=== PATIENT | female | born 1960 | race Caucasian/White ===

== ENCOUNTER 2016-12-29 12:47 | Observation (INO) | payer BC ==
[2016-12-29] MEDS ORDERED: Lasix 40 MG/4 ML IV ONE (14:30)
[2016-12-29] MEDS ORDERED: Sodium Chloride 0.9% 10 ML FLUSH Syringe IV PRN (14:39)
[2016-12-29] MEDS ORDERED: Nitrostat 0.4 MG Tablet SL PRN (14:40)
[2016-12-29 15:12] LABS: Mean Cell Volume 94.2 fl (78-100); Mean Corpuscular Hemoglobin 31.5 pg (26-32); Mean Platelet Volume 9.5 fl (6-9.5); Platelet Count 261 K/mm3 (150-450); Red Blood Count 4.16 M/mm3 (4.1-5.4); Red Cell Distribution Width 13.3 % (11.5-14.0); White Blood Count 6.3 K/mm3 (4.0-10.5)
[2016-12-29 15:35] LABS: BLOOD UREA NITROGEN 15 mg/dL (9-20); CHLORIDE 105 mEq/L (98-107); Glucose 90 MG/DL (70-110); Potassium 3.7 mEq/L (3.5-5.1); SODIUM 142 mEq/L (136-145)
[2016-12-29 15:41] LABS: TROPONIN < 0.017 ng/ml (0.000-0.056)
[2016-12-29] MEDS ORDERED: TYLENOL 325 MG PO PRN (20:21)
[2016-12-29] MEDS: Lopressor 50 MG PO SCH (23:02)
[2016-12-29] MEDS: Zestril 20 MG PO SCH (23:02)
[2016-12-29] MEDS: Sodium Chloride 0.9% 10 ML FLUSH Syringe IV SCH (23:03)
[2016-12-30] MEDS: Lopressor 50 MG PO SCH (08:37)
[2016-12-30] MEDS: Zestril 20 MG PO SCH (08:37)
[2016-12-30] MEDS: Sodium Chloride 0.9% 10 ML FLUSH Syringe IV SCH (08:38)
[2016-12-30] MEDS ORDERED: PLAVIX 75 MG Tablet PO SCH (10:00)
[2016-12-30] MEDS ORDERED: FLUCELVAX QUAD 2017-2018 SYR IM ONE (10:00)
[2016-12-30 11:34] VITALS: BP 133/65; PULSE 56; O2SAT 96
--- NOTE | 2016-12-30 12:43 | PCM.DCORD ---
- Discharge Discharge Date: 12/30/16 Disposition: Home, Self-Care Condition: Stable Prescriptions: New Furosemide 20 mg [Lasix 20 mg] 20 mg PO BID #60 tablet Continue Lisinopril 20 mg [Zestril 20 MG] 20 mg PO BID Nitroglycerin 0.4 mg SL Q5MIN PRN MR X 3 PRN PRN Reason: Chest Pain Metoprolol Tartrate 50 mg PO BID Clopidogrel Bisulfate 75 mg [PLAVIX 75 MG Tablet] 75 mg PO DAILY Follow up with: MANE LIMON MD [Primary Care Provider] - 1 Week
== END 2016-12-30 14:40 | disposition home or self-care (01) ==
LOC: MED SURG 12:47
PROVIDERS: ADMIT General Practice; ATTEND General Practice
DX: I50.31 Acute diastolic (congestive) heart failure (principal); I25.810 Atherosclerosis of coronary artery bypass graft(s) without angina pectoris
CPT/HCPCS: 36415; 80048; 83880; 84484; 85027; 93005; 93268; 94762; G0008; G0378; J1940; A9270-GY

== ENCOUNTER 2017-06-24 09:52 | Observation (INO) | payer BC ==
[2017-06-24] MEDS ORDERED: TYLENOL 325 MG PO PRN (11:25)
[2017-06-24 11:37] LABS: Granulocyte Absolute (ANC) 4.15 (1.4-6.9); Hematocrit 37.5 % (35-47); Hemoglobin 12.5 gm/dl (12.0-16.0); Mean Corpuscular Hemoglobin 31.3 pg (26-32); Mean Corpuscular Hgb Concent. 33.3 g/dl (32-36); Mean Platelet Volume 8.9 fl (6-9.5); Platelet Count 300 K/mm3 (150-450); Red Blood Count 3.99 M/mm3 (4.1-5.4); Red Cell Distribution Width 13.8 % (11.5-14.0); White Blood Count 9.1 K/mm3 (4.0-10.5)
--- NOTE | 2017-06-24 11:39 | PCM.HP.ADD ---
Addendum to History & Physical - History & Physical Addendum Addendum to History & Physical: This certifies that the History & Physical in the electronic chart reflects the current health status of the patient. If there are changes in the H&P these changes/exceptions are listed as follows.
[2017-06-24 11:44] LABS: ALBUMIN 4.2 g/dL (3.5-5.0); ALKALINE PHOSPHATASE 80 U/L (38-126); BLOOD UREA NITROGEN 23 mg/dL (7-17); CHLORIDE 103 mmol/L (98-107); Calcium 9.3 mg/dL (8.4-10.2); Carbon Dioxide 24 mmol/L (22-30); Creatinine 1 0.75 mg/dL (0.52-1.04); Glucose 83 mg/dL (74-106); Potassium 4.2 mmol/L (3.5-5.1); SGOT/AST 22 U/L (14-36); SGPT/ALT 22 U/L (0-35); SODIUM 139 mmol/L (137-145); Total Protein 6.9 g/dL (6.3-8.2)
[2017-06-24 11:52] LABS: NT PRO BNP 120 pg/mL (0-900)
[2017-06-24] MEDS: Zithromax 500 MG/ 250 ML NaCl Premix 500 MG/250 ML IVPB IV SCH (12:04)
[2017-06-24] MEDS: Sodium Chloride 0.9% 1000 ML 1,000 ML IV SCH ×2 (12:04→23:18)
--- NOTE | 2017-06-24 12:11 | XRAY ---
Indication: Short of breath. Comparison: None PA/lateral chest clear. Heart is not enlarged and demonstrates previous CABG surgery. Vascularity normal. Bony thorax intact with sternotomy wires. Impression: Nonacute chest with previous CABG surgery.
[2017-06-24] MEDS: Imdur 30 MG PO SCH (13:22)
[2017-06-24 13:28] LABS: Lymphocytes 36 % (24-44); Monocyte 7 % (0.0-12.0); Neutrophils 57 % (36.0-66.0); Platelet Estimate NORMAL (NORMAL); Total Cells Counted 100
[2017-06-24] MEDS: NORVASC 5 MG PO SCH (13:31)
[2017-06-24] MEDS: Zestril 20 MG PO SCH ×2 (13:32→21:13)
[2017-06-24] MEDS: Lopressor 50 MG PO SCH ×2 (13:33→21:13)
[2017-06-24] MEDS: PLAVIX 75 MG Tablet PO SCH (13:33)
[2017-06-24] MEDS: LASIX 20 MG PO SCH (16:35)
[2017-06-24] MEDS ORDERED: NON-FORMULARY ITEM (Atorvastatin Calcium [Atorvastatin Calcium] 20 MG) PO SCH (22:00)
[2017-06-24] MEDS ORDERED: ZOCOR 20MG PO SCH (22:00)
[2017-06-25 07:00] VITALS: BP 109/57
[2017-06-25] MEDS: Sodium Chloride 0.9% 1000 ML 1,000 ML IV SCH (09:23)
[2017-06-25] MEDS: Zithromax 500 MG/ 250 ML NaCl Premix 500 MG/250 ML IVPB IV SCH (09:29)
[2017-06-25] MEDS: PLAVIX 75 MG Tablet PO SCH (09:32)
[2017-06-25] MEDS: Zestril 20 MG PO SCH (09:32)
[2017-06-25] MEDS: LASIX 20 MG PO SCH (09:32)
[2017-06-25] MEDS: NORVASC 5 MG PO SCH (09:32)
[2017-06-25] MEDS: Lopressor 50 MG PO SCH (09:32)
[2017-06-25] MEDS: Imdur 30 MG PO SCH (09:33)
[2017-06-25] MEDS ORDERED: ROCEPHIN 1 Gm-D5w 50 ml Bag** 1 G/50 ML IVPB IV SCH (10:00)
--- NOTE | 2017-06-25 11:36 | PCM.SSS ---
History of Present Illness - Chief Complaint Chief Complaint: dehydration for 2 days History of Present Illness: is a 56 year old female admitted with weakness, nausea and vomiting - Review of Systems Constitutional: No Fever, No Chills Eyes: No Symptoms Ears, Nose, & Throat: No Symptoms Respiratory: No Cough, No Short Of Breath Cardiac: No Chest Pain, No Edema, No Syncope Abdominal/Gastrointestinal: No Abdominal Pain, No Nausea, No Vomiting, No Diarrhea Genitourinary Symptoms: No Dysuria Musculoskeletal: No Back Pain, No Neck Pain Skin: No Rash Neurological: No Dizziness, No Focal Weakness, No Sensory Changes Psychological: No Symptoms Endocrine: No Symptoms Hematologic/Lymphatic: No Symptoms Immunological/Allergic: No Symptoms Medications & Allergies Home Medications: Home Medication List Clopidogrel Bisulfate 75 mg [PLAVIX 75 MG Tablet] 75 mg PO DAILY 12/29/16 [History Confirmed 06/24/17] Lisinopril 20 mg [Zestril 20 MG] 20 mg PO BID 12/29/16 [History Confirmed 06/24/17] Metoprolol Tartrate 50 mg PO BID 12/29/16 [History Confirmed 06/24/17] Furosemide 20 mg [Lasix 20 mg] 20 mg PO BID #60 tablet 12/30/16 [Rx Confirmed 06/24/17] Amlodipine Besylate 2.5 mg PO DAILY 06/24/17 [History Confirmed 06/24/17] Atorvastatin Calcium 20 mg PO HS 06/24/17 [History Confirmed 06/24/17] Isosorbide Mononitrate 30 mg [Imdur 30 MG] 30 mg PO DAILY 06/24/17 [ History Confirmed 06/24/17] Allergies/Adverse Reactions: Allergies Allergy/AdvReac Type Severity Reaction Status Date / Time Penicillins Allergy Verified 12/29/16 13:21 - Past Medical History Past Medical History: Yes Neurological History: No Pertinent History ENT History: No Pertinent History Cardiac History: No Pertinent History, Hypertension Respiratory History: Asthma, CHF, COPD Endocrine Medical History: No Pertinent History Musculoskelatal History: Osteoporosis GI Medical History: No Pertinent History History: No Pertinent History Pyscho-Social History: No Pertinent History Reproductive Disorders: Uterine Cancer Comment: calcium pills - Female History Are you now?: No - Past Surgical History Past Surgical History: Yes Neuro Surgical History: No Pertinent History Cardiac History: CABG Respiratory Surgery: No Pertinent History GI Surgical History: Appendectomy Genitourinary Surgical Hx: No Pertinent History Musculskeletal Surgical Hx: No Pertinent History Female Surgical History: Hysterectomy Other Surgical History: 02/15/17 stent placement x 3 - Social History Smoking Status: Former smoker Exposure to second hand smoke: No Alcohol: None Drug Use: none - Physical Exam Vital Signs: Vital Signs - 24 hr Temp Pulse Resp BP Pulse Ox 06/25/17 06:59 97.7 F 58 L 20 109/57 95 06/25/17 04:00 98.2 F 60 18 103/54 95 06/25/17 00:00 18 06/24/17 23:51 97.8 F 66 18 101/57 97 06/24/17 20:00 18 06/24/17 19:48 97.7 F 77 18 99/55 95 06/24/17 16:00 97.5 F 68 18 93/53 95 06/24/17 11:46 84 20 93 L General Appearance: no apparent distress, alert Neurologic Exam: alert, oriented x 3, cooperative, normal mood/affect, nml cerebellar function, nml station & gait, sensation nml, No motor deficits Eye Exam: PERRL/EOMI, eyes nml inspection Ears, Nose, Throat Exam: normal ENT inspection, TMs normal, pharynx normal, moist mucous membranes Neck Exam: normal inspection, non-tender, supple, full range of motion Respiratory Exam: normal breath sounds, lungs clear, No respiratory distress Cardiovascular Exam: regular rate/rhythm, normal heart sounds, normal peripheral pulses Gastrointestinal/Abdomen Exam: soft, normal bowel sounds, No tenderness, No mass Back Exam: normal inspection, normal range of motion, No CVA tenderness, No vertebral tenderness Extremity Exam: normal inspection, normal range of motion, pelvis stable Skin Exam: normal color, warm, dry, No rash Lymphatic Exam: No adenopathy Results - Labs Lab/Micro Results: Lab Results-Last 24 Hours 06/24/17 06/24/17 Range/Units 11:25 11:25 WBC 9.1 (4.0-10.5) K/mm3 RBC 3.99 L (4.1-5.4) M/mm3 Hgb 12.5 (12.0-16.0) gm/dl Hct 37.5 (35-47) % MCV 94.0 (78-100) fl MCH 31.3 (26-32) pg MCHC 33.3 (32-36) g/dl RDW 13.8 (11.5-14.0) % Plt Count 300 (150-450) K/mm3 MPV 8.9 (6-9.5) fl Absolute Granulocytes 4.15 (1.4-6.9) Segmented Neutrophils 57 (36.0-66.0) % Lymphocytes (Manual) 36 (24-44) % Monocytes (Manual) 7 (0.0-12.0) % Platelet Estimate NORMAL (NORMAL) RBC Morphology NORMAL Sodium 139 (137-145) mmol/L Potassium 4.2 (3.5-5.1) mmol/L Chloride 103 (98-107) mmol/L Carbon Dioxide 24 (22-30) mmol/L Anion Gap 15.0 (5-15) MEQ/L BUN 23 H (7-17) mg/dL Creatinine 0.75 (0.52-1.04) mg/dL Estimated GFR > 60.0 ML/MIN Glucose 83 (74-106) mg/dL Calcium 9.3 (8.4-10.2) mg/dL Total Bilirubin 0.80 (0.2-1.3) mg/dL AST 22 (14-36) U/L ALT 22 (0-35) U/L Alkaline Phosphatase 80 (38-126) U/L NT-Pro-B Natriuret Pep 120 (0-900) pg/mL Serum Total Protein 6.9 (6.3-8.2) g/dL Albumin 4.2 (3.5-5.0) g/dL - Radiology Impressions Radiology Exams & Impressions: Radiology Procedures Category Date Time Status CHEST 2 VIEWS (PA AND LAT) Stat Exams 06/24/17 12:02 Completed - Other Procedures and Tests Respiratory Therapy 06/24/17 11:25 Respiratory Therapy Consult ROUTINE Assessment/Plan (1) Dehydration Current Visit: Yes Status: Acute Code(s): E86.0 - DEHYDRATION (2) CAD (coronary artery disease) Current Visit: Yes Status: Acute Qualifiers: Coronary Disease-Associated Artery/Lesion type: [place] artery [place] vs. transplanted heart: [place] heart Associated angina: without angina Qualified Code(s): I25.10 - Atherosclerotic heart disease of [place] coronary artery without angina pectoris Code(s): I25.10 - ATHSCL HEART DISEASE OF [place] CORONARY ARTERY W/O ANG PCTRS (3) COPD (chronic obstructive pulmonary disease) Current Visit: Yes Status: Chronic Qualifiers: COPD type: chronic bronchitis (4) CHF (congestive heart failure) Current Visit: Yes Status: Chronic Code(s): I50.9 - HEART FAILURE, UNSPECIFIED Hospital Summary - Hospital Course Hospital Course: Chief Complaint Diagnosis dehydration Allergies Allergy/AdvReac Type Severity Reaction Status Date / Time Penicillins Allergy Verified 12/29/16 13:21 Vital Signs (Last 24 hours) Temp Pulse Resp BP Pulse Ox 06/25/17 06:59 97.7 F 58 L 20 109/57 95 06/25/17 04:00 98.2 F 60 18 103/54 95 06/25/17 00:00 18 06/24/17 23:51 97.8 F 66 18 101/57 97 06/24/17 20:00 18 06/24/17 19:48 97.7 F 77 18 99/55 95 06/24/17 16:00 97.5 F 68 18 93/53 95 06/24/17 11:46 84 20 93 L Home Medications Medication Instructions Recorded Confirmed Last Taken Type Amlodipine Besylate [Amlodipine 2.5 mg PO DAILY 06/24/17 06/24/17 1 Day Ago History Besylate] ~06/23/17 2.5 mg Atorvastatin Calcium 20 mg PO HS 06/24/17 06/24/17 1 Day Ago History ~06/23/17 20 mg Isosorbide Mononitrate 30 mg 30 mg PO DAILY 06/24/17 06/24/17 1 Day Ago History [Imdur 30 MG] ~06/23/17 30mg Current Medications Generic Name Dose Route Start Last Admin Trade Name Freq PRN Reason Stop Dose Admin Acetaminophen 325 mg 06/24/17 11:25 Tylenol 325 Mg PO 07/24/17 11:24 Q4H PRN PRN PAIN, FEVER, HEADACHE Amlodipine Besylate 2.5 mg 06/24/17 14:00 06/25/17 09:32 Norvasc 5 Mg PO 07/24/17 13:59 2.5 mg DAILY VICTOR M Administration Clopidogrel Bisulfate 75 mg 06/24/17 14:00 04/13/18 09:32 Plavix 75 Mg Tablet PO 07/24/17 13:59 75 mg DAILY VICTOR M Administration Furosemide 20 mg 06/24/17 17:00 06/25/17 09:32 Lasix 20 Mg PO 07/24/17 16:59 20 mg BID DIURETIC VICTOR M Administration Azithromycin 500 mg in 250 mls @ 167 mls/hr 06/24/17 12:00 06/25/17 09:29 Zithromax 500 Mg/ 250 Ml Nacl Premix IV 07/24/17 11:59 167 mls/hr Q24H10 VICTOR M Administration Sodium Chloride 1,000 mls @ 100 mls/hr 06/24/17 11:30 06/25/17 09:23 Sodium Chloride 0.9% 1000 Ml IV 07/24/17 11:29 100 mls/hr .Q10H VICTOR M Administration Isosorbide Mononitrate 30 mg 06/24/17 14:00 06/25/17 09:33 Imdur 30 Mg PO 07/24/17 13:59 30 mg DAILY VICTOR M Administration Lisinopril 20 mg 06/24/17 14:00 06/25/17 09:32 Zestril 20 Mg PO 07/24/17 13:59 20 mg BID VICTOR M Administration Metoprolol Tartrate 50 mg 06/24/17 14:00 06/25/17 09:32 Lopressor 50 Mg PO 07/24/17 13:59 50 mg BID VICOTR M Administration Simvastatin 20 mg 06/24/17 22:00 06/24/17 21:14 Zocor 20mg PO 07/24/17 21:59 20 mg HS VICTOR M Administration Discontinued Medications Generic Name Dose Route Start Last Admin Trade Name Freq PRN Reason Stop Dose Admin Ceftriaxone Sodium/Dextrose 1 g in 50 mls @ 100 mls/hr 06/25/17 10:00 Rocephin 1 Gm-D5w 50 Ml Bag IV 07/25/17 09:59 Q24H10 VICTOR M Intake & Output (Last 24 hours) 06/22/17 06/23/17 06/24/17 06/25/17 11:59 11:59 11:59 11:59 Intake Total 3625 Output Total 1850 Balance 1775 Weight 77 kg Laboratory Results (Last 24 hours) 06/24/17 06/24/17 11:25 11:25 WBC 9.1 RBC 3.99 L Hgb 12.5 Hct 37.5 MCV 94.0 MCH 31.3 MCHC 33.3 RDW 13.8 Plt Count 300 MPV 8.9 Absolute Granulocytes 4.15 Segmented Neutrophils 57 Lymphocytes (Manual) 36 Monocytes (Manual) 7 Platelet Estimate NORMAL RBC Morphology NORMAL Sodium 139 Potassium 4.2 Chloride 103 Carbon Dioxide 24 Anion Gap 15.0 BUN 23 H Creatinine 0.75 Estimated GFR > 60.0 Glucose 83 Calcium 9.3 Total Bilirubin 0.80 AST 22 ALT 22 Alkaline Phosphatase 80 NT-Pro-B Natriuret Pep 120 Serum Total Protein 6.9 Albumin 4.2 Orders (Last 24 hours) Category Date Time Status Place in Observation ROUTINE Care 06/24/17 11:25 Active Nutritional Admission Screen once Diet 06/24/17 11:00 Active CHEST 2 VIEWS (PA AND LAT) Stat Exams 06/24/17 12:02 Completed CBC W DIFF Stat Lab 06/24/17 11:25 Completed CMP Stat Lab 06/24/17 11:25 Completed Manual Differential NC Stat Lab 06/24/17 11:25 Completed NT PRO BNP Stat Lab 06/24/17 11:25 Completed Acetaminophen 325 mg [Tylenol 325 mg] Med 06/24/17 11:25 Active 325 mg PO Q4H PRN PRN Amlodipine Besylate 5 mg [Norvasc 5 mg] Med 06/24/17 14:00 Active 2.5 mg PO DAILY Azithromycin 500 mg/250 ml [Zithromax 500 MG/ 250 ML Med 06/24/17 12:00 Active NaCl Premix] 500 mg in 250 ml IV Q24H10 Ceftriaxone 1 GM/50 ML PREMIX* [ROCEPHIN 1 Gm-D5w 50 ml Med 06/25/17 10:00 Discontinued Bag] 1 g in 50 ml IV Q24H10 Clopidogrel Bisulfate 75 mg [PLAVIX 75 MG Tablet] Med 06/24/17 14:00 Active 75 mg PO DAILY Furosemide 20 mg [Lasix 20 mg] Med 06/24/17 17:00 Active 20 mg PO BID DIURETIC Isosorbide Mononitrate 30 mg [Imdur 30 MG] Med 06/24/17 14:00 Active 30 mg PO DAILY Lisinopril 20 mg [Zestril 20 MG] Med 06/24/17 14:00 Active 20 mg PO BID Metoprolol Tartrate 50 mg [Lopressor 50 MG] Med 06/24/17 14:00 Active 50 mg PO BID NaCl 0.9% 1000 ml [Sodium Chloride 0.9% 1000 ML] 1,000 Med 06/24/17 11:30 Active ml IV 100 mls/hr Simvastatin 20Mg [Zocor 20Mg] Med 06/24/17 22:00 Active 20 mg PO HS EKG STAT RT 06/24/17 11:25 Completed Respiratory Therapy Consult ROUTINE RT 06/24/17 11:25 Active - Vitals & Intake/Output Vital Signs: Vital Signs Temperature 97.7 F 06/25/17 06:59 Pulse Rate 58 L 06/25/17 06:59 Respiratory Rate 20 06/25/17 06:59 Blood Pressure 109/57 06/25/17 06:59 O2 Sat by Pulse Oximetry 95 06/25/17 06:59 Intake & Output: Intake & Output 06/22/17 06/23/17 06/24/17 06/25/17 11:59 11:59 11:59 11:59 Intake Total 3625 Output Total 1850 Balance 1775 Weight 77 kg - Lab Result Diagrams: 06/24/17 11:25 06/24/17 11:25 Lab Results-Last 24 Hrs: Lab Results-Last 24 Hours 06/24/17 06/24/17 Range/Units 11:25 11:25 WBC 9.1 (4.0-10.5) K/mm3 RBC 3.99 L (4.1-5.4) M/mm3 Hgb 12.5 (12.0-16.0) gm/dl Hct 37.5 (35-47) % MCV 94.0 (78-100) fl MCH 31.3 (26-32) pg MCHC 33.3 (32-36) g/dl RDW 13.8 (11.5-14.0) % Plt Count 300 (150-450) K/mm3 MPV 8.9 (6-9.5) fl Absolute Granulocytes 4.15 (1.4-6.9) Segmented Neutrophils 57 (36.0-66.0) % Lymphocytes (Manual) 36 (24-44) % Monocytes (Manual) 7 (0.0-12.0) % Platelet Estimate NORMAL (NORMAL) RBC Morphology NORMAL Sodium 139 (137-145) mmol/L Potassium 4.2 (3.5-5.1) mmol/L Chloride 103 (98-107) mmol/L Carbon Dioxide 24 (22-30) mmol/L Anion Gap 15.0 (5-15) MEQ/L BUN 23 H (7-17) mg/dL Creatinine 0.75 (0.52-1.04) mg/dL Estimated GFR > 60.0 ML/MIN Glucose 83 (74-106) mg/dL Calcium 9.3 (8.4-10.2) mg/dL Total Bilirubin 0.80 (0.2-1.3) mg/dL AST 22 (14-36) U/L ALT 22 (0-35) U/L Alkaline Phosphatase 80 (38-126) U/L NT-Pro-B Natriuret Pep 120 (0-900) pg/mL Serum Total Protein 6.9 (6.3-8.2) g/dL Albumin 4.2 (3.5-5.0) g/dL - Radiology Exams Ordered Rad Exams-Entire Visit: Radiology Procedures Category Date Time Status CHEST 2 VIEWS (PA AND LAT) Stat Exams 06/24/17 12:02 Completed - Procedures and Test Procedures and Tests throughout Hospitalization: Therapy Orders & Screens 06/24/17 11:25 EKG STAT Comment: Diagnosis: dehydration Respiratory Therapy Consult ROUTINE Comment: Reason For Exam: Diagnosis: dehydration - Discharge Discharge Date: 06/25/17 Disposition: Home, Self-Care Condition: Stable Prescriptions: Continue Lisinopril 20 mg [Zestril 20 MG] 20 mg PO BID Metoprolol Tartrate 50 mg PO BID Clopidogrel Bisulfate 75 mg [PLAVIX 75 MG Tablet] 75 mg PO DAILY Furosemide 20 mg [Lasix 20 mg] 20 mg PO BID #60 tablet Amlodipine Besylate 2.5 mg PO DAILY Isosorbide Mononitrate 30 mg [Imdur 30 MG] 30 mg PO DAILY Atorvastatin Calcium 20 mg PO HS Follow up with: MANE LIMON MD [Primary Care Provider] - 1 Week
[2017-06-25 12:16] VITALS: PULSE 80; O2SAT 97
== END 2017-06-25 13:55 | disposition home or self-care (01) ==
LOC: MED SURG 10:09
PROVIDERS: ADMIT General Practice; ATTEND General Practice
DX: E86.0 Dehydration (principal); I25.10 Atherosclerotic heart disease of native coronary artery without angina pectoris; I10 Essential (primary) hypertension; J45.909 Unspecified asthma, uncomplicated; I50.9 Heart failure, unspecified; J44.9 Chronic obstructive pulmonary disease, unspecified; M81.0 Age-related osteoporosis without current pathological fracture; Z85.42 Personal history of malignant neoplasm of other parts of uterus; Z79.899 Other long term (current) drug therapy
CPT/HCPCS: 36415; 71046; 80053; 83880; 85025; 93005; 93268; 94760; J0456; A9270-GY; G0378

== ENCOUNTER 2018-08-07 09:36 | Emergency (ER) | payer BC ==
[2018-08-07 10:02] LABS: BASOPHIL % 0.6 % (0.0-0.4); Basophil (Absolute #) 0.04 (0-0.4); Eosinophil % 1.5 % (0.00-5.0); Granulocyte Absolute (ANC) 3.67 (1.4-6.9); Granulocytes % 53.9 % (36.0-66.0); Hematocrit 41.5 % (35-47); Lymphocytes % 35.3 % (24.0-44.0); Mean Cell Volume 94.7 fl (78-100); Mean Corpuscular Hgb Concent. 33.7 g/dl (32-36); Mean Platelet Volume 9.2 fl (6-9.5); Monocyte (Absolute #) 0.59 (0.0-1.3); Monocytes % 8.7 % (0.0-12.0); Platelet Count 274 K/mm3 (150-450); Red Blood Count 4.38 M/mm3 (4.1-5.4); Red Cell Distribution Width 13.5 % (11.5-14.0); White Blood Count 6.8 K/mm3 (4.0-10.5)
[2018-08-07 10:11] LABS: ALBUMIN 4.5 g/dL (3.5-5.0); Total Protein 7.6 g/dL (6.3-8.2)
[2018-08-07] MEDS ORDERED: Sodium Chloride 0.9% 1000 ML 1,000 ML ONE (10:12)
[2018-08-07] MEDS ORDERED: MORPHINE SULFATE 2 MG INJ ONE (10:12)
[2018-08-07 10:16] LABS: Creatinine 1 0.72 mg/dL (0.52-1.04)
--- NOTE | 2018-08-07 10:18 | ERPHSYRPT ---
- History of Present Illness Time Seen by Provider: 08/07/18 10:16 Historian: patient Exam Limitations: no limitations Patient Subjective Stated Complaint: left chest pain that radiates to the neck, back, and down left arm, [facility] Triage Nursing Assessment: Pt walked into the ER with a stable gait, holding chest, left arm numb, S1-S2 heard, pulses normal, vitals normal, took one Nitro before arriving at the ER with no relief, skin normal and dry, rates pain 5/10 Physician History: left chest pain that radiates to the neck, back, and down left arm, released from [facility] yesterday for chest pain. c/o pain and numbness in left upper extrimity. Timing/Duration: today Activities at Onset: none Quality: aching Location: shoulder Chest Pain Radiation: arm Severity of Pain-Max: mild Severity of Pain-Current: mild Modifying Factors: Improves With: nothing Associated Symptoms: denies symptoms Aspirin Treatment Today: no aspirin today Allergies/Adverse Reactions: Penicillins Allergy (Verified 12/29/16 13:21) Home Medications: Clopidogrel Bisulfate 75 mg [PLAVIX 75 MG Tablet] 75 mg PO DAILY 12/29/16 [History] Lisinopril 20 mg [Zestril 20 MG] 20 mg PO BID 12/29/16 [History] Metoprolol Tartrate 50 mg PO BID 12/29/16 [History] Amlodipine Besylate 2.5 mg PO DAILY 06/24/17 [History] Atorvastatin Calcium 20 mg PO HS 06/24/17 [History] Isosorbide Mononitrate 30 mg [Imdur 30 MG] 30 mg PO DAILY 06/24/17 [History ] Aspirin EC 81 mg [Ecotrin 81 mg] 81 mg PO DAILY 08/07/18 [History] Furosemide 20 mg [Lasix 20 mg] 40 mg PO DAILY 08/07/18 [History] Nitroglycerin 0.4 mg (Ed) [Nitrostat 0.4 MG (ED)] 0.4 mg SL UD 08/07/18 [ History] - Review of Systems Constitutional: No Fever, No Chills Eyes: No Symptoms Ears, Nose, & Throat: No Symptoms Respiratory: No Cough, No Dyspnea Cardiac: Chest Pain, No Edema, No Syncope Abdominal/Gastrointestinal: No Abdominal Pain, No Nausea, No Vomiting, No Diarrhea Genitourinary Symptoms: No Dysuria Musculoskeletal: No Back Pain, No Neck Pain Skin: No Rash Neurological: No Dizziness, No Focal Weakness, No Sensory Changes Psychological: No Symptoms Endocrine: No Symptoms All Other Systems: Reviewed and Negative - Past Medical History Pertinent Past Medical History: Yes Neurological History: No Pertinent History ENT History: No Pertinent History Cardiac History: No Pertinent History, Hypertension Respiratory History: Asthma, CHF, COPD Endocrine Medical History: No Pertinent History Musculoskeletal History: Osteoporosis GI Medical History: No Pertinent History History: No Pertinent History Psycho-Social History: No Pertinent History Female Reproductive Disorders: Uterine Cancer Other Medical History: calcium pills - Past Surgical History Past Surgical History: Yes Neuro Surgical History: No Pertinent History Cardiac: CABG Respiratory: No Pertinent History Gastrointestinal: Appendectomy Genitourinary: No Pertinent History Musculoskeletal: No Pertinent History Female Surgical History: Hysterectomy Other Surgical History: 02/15/17 stent placement x 3 - Social History Smoking Status: Former smoker Exposure to second hand smoke: No Drug Use: none Patient Lives Alone: Yes - Female History Hx Now: No - Nursing Vital Signs Nursing Vital Signs: Initial Vital Signs Pulse Rate 73 08/07/18 09:38 Pain Scale Pain Intensity 5 - Physical Exam General Appearance: no apparent distress, alert Eye Exam: PERRL/EOMI, eyes nml inspection Ears, Nose, Throat Exam: normal ENT inspection, moist mucous membranes Neck Exam: normal inspection, non-tender, supple, full range of motion Respiratory Exam: normal breath sounds, lungs clear, No respiratory distress Cardiovascular Exam: regular rate/rhythm, normal heart sounds Gastrointestinal/Abdomen Exam: soft, No tenderness, No mass Back Exam: normal inspection, No CVA tenderness, No vertebral tenderness Extremity Exam: normal inspection, normal range of motion Neurologic Exam: alert, oriented x 3, cooperative, normal mood/affect, sensation nml, No motor deficits Skin Exam: normal color, warm, dry SpO2: 99 - Course Nursing assessment & vital signs reviewed: Yes - CT Exams Chest CT Interpretation: Tele-radiologist Report (no PE, cholecystitis) Ordered Tests: Active Orders 24 hr Category Date Time Status Pyrometer Mechanic STAT Care 08/07/18 09:43 Active EKG-ER Only STAT Care 08/07/18 09:42 Active Oxygen-ED Only Nasal Cannula 2 lpm Care 08/07/18 09:42 Active CHEST W/WO CONTRAST [CT] Stat Exams 08/07/18 10:34 Taken CBC W DIFF Stat Lab 08/07/18 09:42 Completed CK-Creatinine Phosphokinase Stat Lab 08/07/18 09:42 Completed CMP Stat Lab 08/07/18 09:42 Completed D-DIMER QUANTITATION Stat Lab 08/07/18 09:42 Completed NT PRO BNP Stat Lab 08/07/18 09:42 Completed TROPONIN Stat Lab 08/07/18 09:42 Completed Medication Summary Generic Name Dose Route Start Last Admin Trade Name Freq PRN Reason Stop Dose Admin Sodium Chloride 1,000 mls @ 50 mls/hr 08/07/18 09:45 08/07/18 10:19 Sodium Chloride 0.9% 1000 Ml IV 09/06/18 09:44 50 mls/hr .Q20H VICTOR M Administration Discontinued Medications Generic Name Dose Route Start Last Admin Trade Name Freq PRN Reason Stop Dose Admin Morphine Sulfate 2 mg 08/07/18 09:42 08/07/18 10:19 Morphine Sulfate 2 Mg Inj IV 08/07/18 09:43 2 mg STAT ONE Administration Morphine Sulfate Confirm 08/07/18 10:12 Morphine Sulfate 2 Mg Inj Administered 08/07/18 10:13 Dose 2 mg .ROUTE .STK-MED ONE Lab/Rad Data: Laboratory Result Diagrams 08/07/18 09:42 08/07/18 09:42 Laboratory Results 08/07/18 08/07/18 08/07/18 Range/Units 09:42 09:42 09:42 WBC 6.8 (4.0-10.5) K/mm3 RBC 4.38 (4.1-5.4) M/mm3 Hgb 14.0 (12.0-16.0) gm/dl Hct 41.5 (35-47) % MCV 94.7 (78-100) fl MCH 32.0 (26-32) pg MCHC 33.7 (32-36) g/dl RDW 13.5 (11.5-14.0) % Plt Count 274 (150-450) K/mm3 MPV 9.2 (6-9.5) fl Gran % 53.9 (36.0-66.0) % Eos # (Auto) 0.10 (0-0.5) Absolute Lymphs (auto) 2.40 (1.0-4.6) Absolute Monos (auto) 0.59 (0.0-1.3) Lymphocytes % 35.3 (24.0-44.0) % Monocytes % 8.7 (0.0-12.0) % Eosinophils % 1.5 (0.00-5.0) % Basophils % 0.6 (0.0-0.4) % Absolute Granulocytes 3.67 (1.4-6.9) Basophils # 0.04 (0-0.4) D-Dimer 844 H* (215-500) ng/mL Sodium 142 (137-145) mmol/L Potassium 4.1 (3.5-5.1) mmol/L Chloride 107 (98-107) mmol/L Carbon Dioxide 24 (22-30) mmol/L Anion Gap 15.5 H (5-15) MEQ/L BUN 20 H (7-17) mg/dL Creatinine 0.72 (0.52-1.04) mg/dL Estimated GFR > 60.0 ML/MIN Glucose 105 (74-106) mg/dL Calcium 9.6 (8.4-10.2) mg/dL Total Bilirubin 1.30 (0.2-1.3) mg/dL AST 28 (14-36) U/L ALT 28 (0-35) U/L Alkaline Phosphatase 79 (38-126) U/L Creatine Kinase 141 H (30-135) U/L Troponin I < 0.012 (0.000-0.034) ng/mL NT-Pro-B Natriuret Pep 73.5 (0-900) pg/mL Serum Total Protein 7.6 (6.3-8.2) g/dL Albumin 4.5 (3.5-5.0) g/dL - Progress Progress: improved Air Movement: good Blood Culture(s) Obtained: No Antibiotics given: No Counseled pt/family regarding: lab results, diagnosis, need for follow-up, rad results - Departure Departure Disposition: Home Clinical Impression: Chest pain in adult, Choledocholithiasis Condition: Stable Critical Care Time: Yes Critical Care Time(excluding separately billable procedures): 30-74 minutes Referrals: MANE LIMON MD [Primary Care Provider] - Instructions: Atypical Chest Pain, Gallstones Additional Instructions: Discharge/Care Plan KAM KUO was seen on 08/07/18 in the Emergency Room. The patient was counseled regarding Diagnosis,Lab results, Imaging studies, need for follow up and when to return to the Emergency Room. Prescriptions given: Discharge Note I have spoken with the patient and/or caregivers. I have explained the patient' s condition, diagnosis and treatment plan based on the information available to me at this time. I have answered the patient's and/or caregiver's questions and addressed any concerns. The patient and/or caregivers have as good understanding of the patient's diagnosis, condition and treatment plan as can be expected at this point. The vital signs have been stable. The patient's condition is stable and appropriate for discharge from the emergency department. The patient will pursue further outpatient evaluation with the primary care physician or other designated or consulting physician as outlined in the discharge instructions. The patient and/or caregivers are agreeable to this plan of care and follow-up instructions have been explained in detail. The patient and/or caregivers have received these instruction. The patient/and or caregivers are aware that any significant change in condition or worsening of symptoms should prompt an immediate return to this or the closest emergency department or call 911. Prescriptions: Gabapentin 400 mg [Neurontin 400 MG] 0 mg PO QHS #30 capsule
[2018-08-07] MEDS: MORPHINE SULFATE 2 MG INJ IV ONE (10:19)
[2018-08-07] MEDS: Sodium Chloride 0.9% 1000 ML 1,000 ML IV SCH (10:19)
[2018-08-07 10:23] LABS: ALKALINE PHOSPHATASE 79 U/L (38-126); ANION GAP 15.5 MEQ/L (5-15); BLOOD UREA NITROGEN 20 mg/dL (7-17); CHLORIDE 107 mmol/L (98-107); CK-Creatinine Phosphokinase 141 U/L (30-135); Calcium 9.6 mg/dL (8.4-10.2); Carbon Dioxide 24 mmol/L (22-30); Glucose 105 mg/dL (74-106); NT PRO BNP 73.5 pg/mL (0-900); Potassium 4.1 mmol/L (3.5-5.1); SGOT/AST 28 U/L (14-36); SGPT/ALT 28 U/L (0-35); SODIUM 142 mmol/L (137-145)
[2018-08-07 10:26] LABS: TROPONIN < 0.012 ng/mL (0.000-0.034)
[2018-08-07 12:02] VITALS: BP 114/82; PULSE 113
[2018-08-07 12:05] VITALS: O2SAT 99
--- NOTE | 2018-08-07 22:07 | XRAY ---
Indication: Chest pain. Tachypnea. Multiple contiguous axial images obtained through the chest prior to and following 100 cc Isovue 370 contrast. Comparison: None. Lungs are inflated without suspicious pulmonary mass, infiltrate, or effusion. Tiny right base calcified granuloma. Heart is not enlarged with CABG surgery. Aorta is normal in course and caliber. No pathologic mediastinal/hilar lymphadenopathy. Sagittal and coronal reformatted images images mild degenerative changes throughout the spine and sternotomy wires. Limited upper abdomen demonstrates diffuse fatty liver. Incompletely visualized distended gallbladder with wall thickening/edema. Impression: 1. Incompletely visualized abnormal distended gallbladder with wall thickening/edema. Ultrasound may yield further information. 2. Fatty liver. 3. Remaining CT chest with and without contrast exam is negative. Comment: Preliminary interpretation was made by C. No discrepancy. CTDI 14.38
== END 2018-08-07 12:28 | disposition home or self-care (01) ==
LOC: ED 09:36
DX: R07.9 Chest pain, unspecified (principal); K80.20 Calculus of gallbladder without cholecystitis without obstruction; Z79.899 Other long term (current) drug therapy; I10 Essential (primary) hypertension; J44.9 Chronic obstructive pulmonary disease, unspecified; I50.9 Heart failure, unspecified; M81.0 Age-related osteoporosis without current pathological fracture; Z85.42 Personal history of malignant neoplasm of other parts of uterus
CPT/HCPCS: 36000; 36415; 71270; 80053; 82550; 83880; 84484; 85025; 85379; 93005; 93041; 96360; 96361; 96374; 99284; J2270

== ENCOUNTER 2018-08-08 19:24 | Emergency (ER) | payer BC ==
[2018-08-08] MEDS: TYLENOL EXTRA STRENGTH 500 MG PO STA (20:02)
[2018-08-08] MEDS ORDERED: TYLENOL EXTRA STRENGTH 500 MG ONE (20:02)
[2018-08-08] MEDS: Lidoderm Patch 5% TOP STA (20:03)
[2018-08-08 20:24] VITALS: O2SAT 96
--- NOTE | 2018-08-08 20:48 | ERPHSYRPT ---
- History of Present Illness Source: patient Exam Limitations: no limitations Patient Subjective Stated Complaint: upper back pain x2 days. was seen at [facility] er on Wed, seen at [facility] er on wednesday and is back today. Had ct scan yesterday and can't get any relief from the back pain. Triage Nursing Assessment: lungs clear, heart tones reg, abd soft with active bs x4 quad, tender to upper lt quad. no distress noted. Pt c/o upper back pain and upper abd pain to lt side. Pt has rx of gabapentin from er visit yesterday but they made her sweaty and b/p increased. Physician History: PT IS A 57 Y/O FEMALE WITH SEVERE BACK PAIN. She came to [facility] and [facility] ER the last couple of days, with no relief. Pt got a prescription for Gabapentin from Dr Limon, but she states, it increased her BP, and did not help her. Pt can't take NSAIDs, as she is on ASA, for her CAD. Pt did not take any Tylenol, because she is not sure, that she can take it. Timing/Duration: day(s) Quality: sharp, throbbing Back Pain Location: T-spine Severity of Pain-Max: severe Severity of Pain-Current: mild Modifying Factors: Improves With: nothing Associated Symptoms: denies symptoms Allergies/Adverse Reactions: Penicillins Allergy (Verified 12/29/16 13:21) Home Medications: Clopidogrel Bisulfate 75 mg [PLAVIX 75 MG Tablet] 75 mg PO DAILY 12/29/16 [History] Lisinopril 20 mg [Zestril 20 MG] 20 mg PO BID 12/29/16 [History] Metoprolol Tartrate 50 mg PO BID 12/29/16 [History] Amlodipine Besylate 2.5 mg PO DAILY 06/24/17 [History] Atorvastatin Calcium 20 mg PO HS 06/24/17 [History] Isosorbide Mononitrate 30 mg [Imdur 30 MG] 30 mg PO DAILY 06/24/17 [History ] Aspirin EC 81 mg [Ecotrin 81 mg] 81 mg PO DAILY 08/07/18 [History] Furosemide 20 mg [Lasix 20 mg] 40 mg PO DAILY 08/07/18 [History] Nitroglycerin 0.4 mg (Ed) [Nitrostat 0.4 MG (ED)] 0.4 mg SL UD 08/07/18 [ History] Hx Tetanus, Diphtheria Vaccination/Date Given: Yes Hx Influenza Vaccination/Date Given: Yes Hx Pneumococcal Vaccination/Date Given: Yes Immunizations Up to Date: Yes - Review of Systems Constitutional: No Fever, No Chills Respiratory: No Cough, No Dyspnea Cardiac: No Chest Pain, No Edema, No Syncope Abdominal/Gastrointestinal: No Abdominal Pain, No Nausea, No Vomiting, No Diarrhea Musculoskeletal: Back Pain Neurological: No Dizziness, No Focal Weakness, No Sensory Changes - Past Medical History Pertinent Past Medical History: Yes Neurological History: No Pertinent History ENT History: No Pertinent History Cardiac History: High Cholesterol, Hypertension, Myocardial Infarction ([place]) Respiratory History: Asthma, CHF, COPD Endocrine Medical History: No Pertinent History Musculoskeletal History: Osteoporosis GI Medical History: No Pertinent History History: No Pertinent History Psycho-Social History: No Pertinent History Female Reproductive Disorders: Uterine Cancer Other Medical History: 3 stents - Past Surgical History Past Surgical History: Yes Neuro Surgical History: No Pertinent History Cardiac: CABG Respiratory: No Pertinent History Gastrointestinal: Appendectomy Genitourinary: No Pertinent History Musculoskeletal: No Pertinent History Female Surgical History: Hysterectomy Other Surgical History: 02/15/17 stent placement x 3, 11/2015 cabg x4 - Social History Smoking Status: Former smoker Exposure to second hand smoke: Yes Drug Use: none Patient Lives Alone: Yes - Female History Hx Now: No - Nursing Vital Signs Nursing Vital Signs: Initial Vital Signs Temperature 97.7 F 08/08/18 19:40 Pulse Rate 74 08/08/18 19:40 Respiratory Rate 20 08/08/18 19:40 Blood Pressure 148/94 08/08/18 19:40 O2 Sat by Pulse Oximetry 97 08/08/18 19:40 Pain Scale Pain Intensity [Upper 5 Posterior Back] Pain Intensity 5 - Physical Exam General Appearance: no apparent distress, alert Neck Exam: normal inspection, non-tender, supple, full range of motion, No meningismus, No midline tenderness Respiratory Exam: normal breath sounds, lungs clear, No respiratory distress Cardiovascular Exam: regular rate/rhythm, normal heart sounds Back Exam: normal inspection, vertebral tenderness, decreased range of motion, muscle spasm Extremity Exam: normal inspection, normal range of motion, No calf tenderness, No pedal edema Neurologic Exam: alert, oriented x 3, cooperative, 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, normal mood/affect, nml station & gait, sensation nml, No motor deficits SpO2: 96 - Course Nursing assessment & vital signs reviewed: Yes Ordered Tests: Medication Summary Discontinued Medications Generic Name Dose Route Start Last Admin Trade Name Del PRN Reason Stop Dose Admin Acetaminophen 1,000 mg 08/08/18 19:56 08/08/18 20:02 Tylenol Extra Strength 500 Mg PO 08/08/18 19:57 1,000 mg STAT STA Administration Acetaminophen Confirm 08/08/18 20:02 Tylenol Extra Strength 500 Mg Administered 08/08/18 20:03 Dose 1,000 mg .ROUTE .STK-MED ONE Lidocaine 1 patch 08/08/18 19:56 08/08/18 20:03 Lidoderm Patch 5% TOP 08/08/18 19:57 1 patch ONCE STA Administration - Progress Progress: improved Progress Note: 08/08/18 20:49 Pt had multiple studies the last couple of days and there was no need to repeat those. Pt got Tylenol 1gr PO and Lidoderm patch. She improved quick and is comfortable. Pt should f/u with her PCP tomorrow. Discussed with : Tequila Will see patient in: office Counseled pt/family regarding: need for follow-up - Departure Departure Disposition: Home Clinical Impression: Back pain Condition: Stable Critical Care Time: No Referrals: MANE LIMON MD [Primary Care Provider] - Additional Instructions: Use Lidoderm patch daily. You can take up to 4 gr of Tylenol daily, that means 8 extra strength tablets in 24hrs. F/U with PCP tomorrow. Prescriptions: Lidocaine HCl 5% Patch [Lidoderm Patch 5%] 1 patch TOP DAILY 30 Days #30 patch
[2018-08-08 20:54] VITALS: BP 128/69; PULSE 66
== END 2018-08-08 21:01 | disposition home or self-care (01) ==
LOC: ED 19:24
DX: M54.6 Pain in thoracic spine (principal); E78.00 Pure hypercholesterolemia, unspecified; I10 Essential (primary) hypertension; I25.2 Old myocardial infarction; J45.909 Unspecified asthma, uncomplicated; I50.9 Heart failure, unspecified; J44.9 Chronic obstructive pulmonary disease, unspecified; M81.0 Age-related osteoporosis without current pathological fracture; Z79.899 Other long term (current) drug therapy
CPT/HCPCS: 99283; A9270-GY

== ENCOUNTER 2021-03-03 01:18 | Emergency (ER) | payer BC, OTHER ==
[2021-03-03 01:49] VITALS: BP 185/110; PULSE 82; O2SAT 100
--- NOTE | 2021-03-03 01:49 | ERPHSYRPT ---
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 She complains of swelling over the ulnar aspect of the wrist and there is a hematoma forming on the dorsal aspect she has full range of motion normal sensation. She has no other injury this occurred just prior to arrival. Occurred: just prior to arrival Method of Injury: direct blow Quality: aching, throbbing Severity of Pain-Max: moderate Severity of Pain-Current: moderate Extremities Pain Location: wrist: right (Swelling and pain ulnar aspect of the wrist right) Modifying Factors: Improves With: cold therapy, movement Associated Symptoms: none Allergies/Adverse Reactions: Penicillins Allergy (Verified 03/03/21 01:34) Home Medications: Clopidogrel Bisulfate 75 mg [PLAVIX 75 MG Tablet] 75 mg PO DAILY 12/29/16 [History] Lisinopril 20 mg [Zestril 20 MG] 20 mg PO BID 12/29/16 [History] Metoprolol Tartrate 50 mg PO BID 12/29/16 [History] Amlodipine Besylate 2.5 mg PO DAILY 06/24/17 [History] Atorvastatin Calcium 20 mg PO HS 06/24/17 [History] Isosorbide Mononitrate 30 mg [Imdur 30 MG] 30 mg PO DAILY 06/24/17 [History] Aspirin EC 81 mg [Ecotrin 81 mg] 81 mg PO DAILY 08/07/18 [History] Furosemide 20 mg [Lasix 20 mg] 40 mg PO DAILY 08/07/18 [History] Nitroglycerin 0.4 mg (Ed) [Nitrostat 0.4 MG (ED)] 0.4 mg SL UD 08/07/18 [History] Hx Tetanus, Diphtheria Vaccination/Date Given: Yes Hx Influenza Vaccination/Date Given: Yes Hx Pneumococcal Vaccination/Date Given: Yes - Review of Systems Constitutional: No Fever, No Chills Eyes: No Symptoms Ears, Nose, & Throat: No Symptoms Respiratory: No Cough, No Dyspnea Cardiac: No Chest Pain, No Edema, No Syncope Abdominal/Gastrointestinal: No Abdominal Pain, No Nausea, No Vomiting, No Diarrhea Genitourinary Symptoms: No Dysuria Musculoskeletal: Joint Pain, Joint Swelling, No Back Pain, No Neck Pain Skin: No Rash Neurological: No Dizziness, No Focal Weakness, No Sensory Changes Psychological: No Symptoms Endocrine: No Symptoms All Other Systems: Reviewed and Negative - Past Medical History Pertinent Past Medical History: Yes Neurological History: No Pertinent History ENT History: No Pertinent History Cardiac History: High Cholesterol, Hypertension, Myocardial Infarction ([place]) Respiratory History: Asthma, CHF, COPD Endocrine Medical History: No Pertinent History Musculoskeletal History: Osteoporosis GI Medical History: No Pertinent History History: No Pertinent History Psycho-Social History: No Pertinent History Female Reproductive Disorders: Uterine Cancer Other Medical History: 3 stents - Past Surgical History Past Surgical History: Yes Neuro Surgical History: No Pertinent History Cardiac: CABG Respiratory: No Pertinent History Gastrointestinal: Appendectomy Genitourinary: No Pertinent History Musculoskeletal: No Pertinent History Female Surgical History: Hysterectomy Other Surgical History: 02/15/17 stent placement x 3, 11/2015 cabg x4 - Social History Smoking Status: Former smoker Exposure to second hand smoke: Yes Drug Use: none Patient Lives Alone: Yes - Nursing Vital Signs Nursing Vital Signs: Initial Vital Signs Temperature 96.9 F 03/03/21 01:36 Pulse Rate 82 03/03/21 01:36 Respiratory Rate 19 03/03/21 01:36 Blood Pressure 185/110 03/03/21 01:36 O2 Sat by Pulse Oximetry 98 03/03/21 01:36 Pain Scale Pain Intensity 2 - Physical Exam General Appearance: mild distress Eyes, Ears, Nose, Throat Exam: normal ENT inspection Neck Exam: normal inspection, non-tender, supple Back Exam: normal inspection, normal range of motion Wrist Exam: normal ROM, bone tenderness, pain, soft tissue tenderness, swelling Hand Exam: normal inspection, non-tender Neuro/Tendon Exam: normal sensation, normal motor functions, normal tendon functions Mental Status Exam: alert, oriented x 3 Skin Exam: normal color, warm, dry SpO2 Interpretation: normal SpO2: 100 O2 Delivery: Room Air Procedures - Splinting Time of Procedure: 02:04 Location of Splint: Right, Wrist Type of Splint: Aluminum Splint Splint Applied By: ED Nurse Pre-Proc Neuro Vasc Exam: normal Post-Proc Neuro Vasc Exam: neurovascular intact - Radiology Exams Right Wrist X-ray Interpretation: Interpreted by me, Other (Soft tissue swelling ulnar aspect hardware on the radial aspect no acute fractures appreciated) Ordered Tests: Active Orders 24 hr Category Date Time Status WRIST (MIN 3 VIEWS) Stat Exams 03/03/21 01:38 Taken - Progress Progress: improved - Departure Departure Disposition: Home Clinical Impression: Contusion of right wrist Condition: Stable Critical Care Time: No Referrals: MANE LIMON MD [Primary Care Provider] - Follow up/PCP as directed Instructions: Crush Injury (DC)
--- NOTE | 2021-03-03 09:21 | XRAY ---
Indication: Pain and swelling following injury. Comparison: None 3 view right wrist demonstrates osteopenia, old distal radius fracture with intact fixation plate/screws, old 5th metacarpal fracture, and posterior wrist soft tissue swelling. No other bony, articular, or soft tissue abnormalities.
== END 2021-03-03 02:24 | disposition home or self-care (01) ==
LOC: ED 01:18
DX: S60.211A Contusion of right wrist, initial encounter (principal); W31.9XXA Contact with unspecified machinery, initial encounter; Y92.63 Factory as the place of occurrence of the external cause; Y99.0 Civilian activity done for income or pay; E78.5 Hyperlipidemia, unspecified; I10 Essential (primary) hypertension; Z79.01 Long term (current) use of anticoagulants
CPT/HCPCS: 73110; 99283; A4570

== ENCOUNTER 2022-09-15 15:25 | Observation (INO) | payer BC ==
[2022-09-15] MEDS ORDERED: solu-MEDROL 125 MG, Sterile H2O 10 ml 2 ML IV ONE ×2 (15:57)
[2022-09-15] MEDS ORDERED: DUONEB 0.5-3 MG/3 ml Neb IH ONE ×4 (15:57→18:19)
--- NOTE | 2022-09-15 16:01 | ERPHSYRPT ---
- History of Present Illness Time Seen by Provider: 09/15/22 15:34 Source: patient Exam Limitations: no limitations Patient Subjective Stated Complaint: SOB Triage Nursing Assessment: Patient ambulated back to ED and transferred self to bed. Patient A+O X 3. Patient's skin pink, warm and dry. Patient states one hour prior to coming to ED she was sitting on couch watching TV when she became very SOB. Patient denies pain or discomfort. Patient denies cough, N/V or diarrhea. Lungs cllear a/p joo. Physician History: 61-year-old female with history of COPD, coronary artery disease status post CABG, hypertension, hyperlipidemia presented to the ER with chief complaint of sudden onset shortness of breath while she was sitting watching TV almost an hour prior to arrival. Patient reports generalized chest tightness with a lot of pressure on the left side. Denies any aggravating relieving factors. Does report having chronic smoker's cough which is not any worse than usual but has worsening of wheezing. Patient unable to relate any aggravating or relieving factors associated with it. Patient is not hypoxic on presentation, mildly tachypneic but not tachycardic. Timing/Duration: hour(s) (1), constant, sudden Activities at Onset: rest Severity of Dyspnea-Max: moderate Severity of Dyspnea-Current: moderate Modifying Factors: Improves With: nothing Associated Symptoms: chest pain/discomfort, heaviness, tightness Allergies/Adverse Reactions: Penicillins Allergy (Verified 09/15/22 15:29) Home Medications: Clopidogrel Bisulfate [PLAVIX Tablet] 75 mg PO DAILY 12/29/16 [History] Lisinopril 20 mg [Zestril 20 MG] 20 mg PO BID 12/29/16 [History] Metoprolol Tartrate 50 mg PO BID 12/29/16 [History] Atorvastatin Calcium 20 mg PO HS 06/24/17 [History] Isosorbide Mononitrate 30 mg [Imdur 30 MG] 30 mg PO DAILY 06/24/17 [History] Aspirin EC 81 mg [Ecotrin 81 mg] 81 mg PO DAILY 08/07/18 [History] Furosemide 20 mg [Lasix 20 mg] 40 mg PO DAILY 08/07/18 [History] Nitroglycerin 0.4 mg (Ed) [Nitrostat 0.4 MG (ED)] 0.4 mg SL UD 08/07/18 [History] Hx Tetanus, Diphtheria Vaccination/Date Given: Yes Hx Influenza Vaccination/Date Given: Yes Hx Pneumococcal Vaccination/Date Given: Yes Immunizations Up to Date: Yes Travel Risk - International Travel Have you traveled outside of the country in past 3 weeks: No - Coronavirus Screening Are you exhibiting any of the following symptoms?: No Close contact with a COVID-19 positive Pt in past 14-21 Days: No - Vaccine Status Have you recieved a Covid-19 vaccination: Yes 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: 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 - Vaccination Dates Dates if Unknown: na - Review of Systems Constitutional: No Symptoms Eyes: No Symptoms Ears, Nose, & Throat: No Symptoms Respiratory: Cough, Dyspnea, Wheezing Cardiac: Chest Pain, No Palpitations Abdominal/Gastrointestinal: No Symptoms Genitourinary Symptoms: No Symptoms Musculoskeletal: No Symptoms Neurological: No Symptoms Psychological: No Symptoms Hematologic/Lymphatic: No Symptoms - Past Medical History Pertinent Past Medical History: Yes Neurological History: No Pertinent History ENT History: No Pertinent History Cardiac History: High Cholesterol, Hypertension, Myocardial Infarction ([place]) Respiratory History: Asthma, CHF, COPD Endocrine Medical History: No Pertinent History Musculoskeletal History: Osteoporosis GI Medical History: No Pertinent History History: No Pertinent History Psycho-Social History: No Pertinent History Female Reproductive Disorders: Uterine Cancer Other Medical History: 3 stents - Past Surgical History Past Surgical History: Yes Neuro Surgical History: No Pertinent History Cardiac: CABG Respiratory: No Pertinent History Gastrointestinal: Appendectomy Genitourinary: No Pertinent History Musculoskeletal: No Pertinent History Female Surgical History: Hysterectomy Other Surgical History: 02/15/17 stent placement x 3, 11/2015 cabg x4 - Social History Smoking Status: Former smoker Exposure to second hand smoke: Yes Drug Use: none Patient Lives Alone: Yes - Nursing Vital Signs Nursing Vital Signs: Initial Vital Signs Temperature 96.4 F 09/15/22 15:30 Pulse Rate 88 09/15/22 15:30 Respiratory Rate 18 09/15/22 15:30 Blood Pressure 168/98 09/15/22 15:30 O2 Sat by Pulse Oximetry 96 09/15/22 15:30 Pain Scale Pain Intensity 2 - Physical Exam General Appearance: mild distress, alert, anxiety Eye Exam: PERRL/EOMI, eyes nml inspection Ears, Nose, Throat Exam: hearing grossly normal, normal ENT inspection, normal pharynx Neck Exam: normal inspection, non-tender, supple, full range of motion Respiratory Exam: diminished breath sounds, rhonchi, wheezing Cardiovascular/Chest Exam: normal heart sounds, regular rate/rhythm Abdominal/Gastrointestinal Exam: soft, normal bowel sounds, No tenderness Extremity Exam: non-tender Neurologic Exam: alert, oriented x 3, cooperative Skin Exam: normal color SpO2 Interpretation: normal SpO2: 98 O2 Delivery: Room Air - Course EKG Interpreted by Me: RATE ([id number]), Sinus Rhythm, NORMAL AXIS, NORMAL INTERVALS, NORMAL QRS Ordered Tests: Active Orders 24 hr Category Date Time Status Computer Technology Instructor STAT Care 09/15/22 15:57 Active EKG-ER Only STAT Care 09/15/22 15:57 Active IV Insertion STAT Care 09/15/22 15:57 Active CHEST 1 VIEW (PORTABLE) Stat Exams 09/15/22 15:57 Completed CHEST WITH CONTRAST [CT] Stat Exams 09/15/22 18:05 Taken BLOOD CULTURE Stat Lab 09/15/22 16:23 Received CBC W DIFF Stat Lab 09/15/22 16:00 Completed CMP Stat Lab 09/15/22 16:00 Completed D-DIMER QUANTITATIVE Stat Lab 09/15/22 17:06 Completed Lactic Acid Stat Lab 09/15/22 16:10 Completed MAGNESIUM Stat Lab 09/15/22 16:00 Completed NT PRO BNPII Stat Lab 09/15/22 16:00 Completed PROCALCITONIN Stat Lab 09/15/22 16:00 Completed TROPONIN Q4H Lab 09/15/22 20:10 Completed TROPONIN Q4H Lab 09/16/22 00:00 Ordered TROPONIN Stat Lab 09/15/22 16:00 Completed Respiratory Therapy Assessment DAILY RT 09/15/22 16:17 Active Transfer Order Routine Transfer 09/15/22 Ordered Medication Summary Generic Name Dose Route Start Last Admin Trade Name Freq PRN Reason Stop Dose Admin Levofloxacin/Dextrose 750 mg in 150 mls @ 100 mls/hr 09/15/22 21:00 09/15/22 21:11 Levofloxacin 750mg/150ml D5w IV 09/15/22 22:29 100 ml/hr STAT STA 100 mls/hr Administration Sodium Chloride 1,000 mls @ 999 mls/hr 09/15/22 21:01 09/15/22 21:11 Sodium Chloride 0.9% 1000 Ml IV 09/15/22 22:01 999 mls/hr .Q1H1M STA Administration Discontinued Medications Generic Name Dose Route Start Last Admin Trade Name Del PRN Reason Stop Dose Admin Albuterol/Ipratropium 3 ml 09/15/22 15:57 09/15/22 16:07 Ipratropium/Albuterol Sulfate 3 Ml Ampul.Neb IH 09/15/22 15:58 3 ml STAT ONE Administration Albuterol/Ipratropium Confirm 09/15/22 16:05 Ipratropium/Albuterol Sulfate 3 Ml Ampul.Neb Administered 09/15/22 16:06 Dose 3 ml IH .STK-MED ONE Albuterol/Ipratropium 3 ml 09/15/22 18:19 09/15/22 18:20 Ipratropium/Albuterol Sulfate 3 Ml Ampul.Neb IH 09/15/22 18:20 3 ml STAT ONE Administration Albuterol/Ipratropium Confirm 09/15/22 18:18 Ipratropium/Albuterol Sulfate 3 Ml Ampul.Neb Administered 09/15/22 18:19 Dose 3 ml IH .STK-MED ONE Methylprednisolone Sodium 0 mg 09/15/22 15:57 09/15/22 16:04 Succinate 125 mg/ Sterile IV 09/15/22 15:58 125 mg Water 2 ml STAT ONE Administration Sodium Chloride Confirm 09/15/22 21:09 Sodium Chloride 0.9% 1000 Ml Administered 09/15/22 21:10 Dose 1,000 mls @ ud .ROUTE .STK-MED ONE Levofloxacin/Dextrose Confirm 09/15/22 21:09 Levofloxacin 750mg/150ml D5w Administered 09/15/22 21:10 Dose 750 mg in 150 mls @ ud IV .STK-MED ONE Methylprednisolone Sodium Succinate Confirm 09/15/22 16:03 Methylprednis Sod Succ 125 Mg/2 Ml Vial Administered 09/15/22 16:04 Dose 125 mg .ROUTE .STK-MED ONE Sterile Water Confirm 09/15/22 16:03 Water For Injection,Sterile 10 Ml Vial Administered 09/15/22 16:04 Dose 10 ml IJ .STK-MED ONE Lab/Rad Data: Laboratory Result Diagrams 09/15/22 16:00 09/15/22 16:00 Laboratory Results 09/15/22 09/15/22 09/15/22 Range/Units 20:10 17:06 16:10 WBC (4.0-10.5) x10^3/uL RBC (4.1-5.4) x10^6/uL Hgb (12.0-16.0) g/dL Hct (35-47) % MCV (78-100) fL MCH (26-32) pg MCHC (32-36) g/dL RDW (11.5-14.0) % Plt Count (150-450) x10^3/uL MPV (7.5-11.0) fL Gran % (36.0-66.0) % Immature Gran % (Auto) (0.00-0.4) % Nucleat RBC Rel Count (0.00-0.1) % Eos # (Auto) (0-0.5) x10^3/uL Immature Gran # (Auto) (0.00-0.03) x10^3u/L Absolute Lymphs (auto) (1.0-4.6) x10^3/uL Absolute Monos (auto) (0.0-1.3) x10^3/uL Absolute Nucleated RBC (0.00-0.01) x10^3u/L Lymphocytes % (24.0-44.0) % Monocytes % (0.0-12.0) % Eosinophils % (0.00-5.0) % Basophils % (0.0-0.4) % Absolute Granulocytes (1.4-6.9) x10^3/uL Basophils # (0-0.4) x10^3/uL D-Dimer 0.23 (0.0-0.50) mg/L Sodium (137-145) mmol/L Potassium (3.5-5.1) mmol/L Chloride (98-107) mmol/L Carbon Dioxide (22-30) mmol/L Anion Gap (5-15) MEQ/L BUN (7-17) mg/dL Creatinine (0.52-1.04) mg/dL Estimated GFR ML/MIN Glucose (74-106) mg/dL Lactic Acid 1.0 (0.4-2.0) Calcium (8.4-10.2) mg/dL Magnesium (1.6-2.3) mg/dL Total Bilirubin (0.2-1.3) mg/dL AST (14-36) U/L ALT (0-35) U/L Alkaline Phosphatase (38-126) U/L Troponin I < 0.012 (0.000-0.034) ng/mL NT-Pro-B Natriuret Pep (<300) pg/mL Serum Total Protein (6.3-8.2) g/dL Albumin (3.5-5.0) g/dL Procalcitonin (0.030-0.080) ng/mL 09/15/22 09/15/22 09/15/22 Range/Units 16:00 16:00 16:00 WBC 7.5 (4.0-10.5) x10^3/uL RBC 4.30 (4.1-5.4) x10^6/uL Hgb 13.6 (12.0-16.0) g/dL Hct 39.3 (35-47) % MCV 91.4 (78-100) fL MCH 31.6 (26-32) pg MCHC 34.6 (32-36) g/dL RDW 13.0 (11.5-14.0) % Plt Count 265 (150-450) x10^3/uL MPV 9.2 (7.5-11.0) fL Gran % 45.6 (36.0-66.0) % Immature Gran % (Auto) 0.3 (0.00-0.4) % Nucleat RBC Rel Count 0.0 (0.00-0.1) % Eos # (Auto) 0.16 (0-0.5) x10^3/uL Immature Gran # (Auto) 0.02 (0.00-0.03) x10^3u/L Absolute Lymphs (auto) 3.25 (1.0-4.6) x10^3/uL Absolute Monos (auto) 0.54 (0.0-1.3) x10^3/uL Absolute Nucleated RBC 0.00 (0.00-0.01) x10^3u/L Lymphocytes % 43.5 (24.0-44.0) % Monocytes % 7.2 (0.0-12.0) % Eosinophils % 2.1 (0.00-5.0) % Basophils % 1.3 (0.0-0.4) % Absolute Granulocytes 3.40 (1.4-6.9) x10^3/uL Basophils # 0.10 (0-0.4) x10^3/uL D-Dimer (0.0-0.50) mg/L Sodium 141 (137-145) mmol/L Potassium 3.8 (3.5-5.1) mmol/L Chloride 107 (98-107) mmol/L Carbon Dioxide 23 (22-30) mmol/L Anion Gap 14.6 (5-15) MEQ/L BUN 24 H (7-17) mg/dL Creatinine 0.88 (0.52-1.04) mg/dL Estimated GFR > 60.0 ML/MIN Glucose 98 (74-106) mg/dL Lactic Acid (0.4-2.0) Calcium 9.9 (8.4-10.2) mg/dL Magnesium 2.0 (1.6-2.3) mg/dL Total Bilirubin 0.60 (0.2-1.3) mg/dL AST 46 H (14-36) U/L ALT 60 H (0-35) U/L Alkaline Phosphatase 78 (38-126) U/L Troponin I < 0.012 (0.000-0.034) ng/mL NT-Pro-B Natriuret Pep 98.3 (<300) pg/mL Serum Total Protein 7.9 (6.3-8.2) g/dL Albumin 4.6 (3.5-5.0) g/dL Procalcitonin 0.061 (0.030-0.080) ng/mL - Progress Progress: improved Air Movement: good Progress Note: 09/15/22 16:01 61-year-old female with history of COPD, coronary artery disease status post CABG, hypertension, hyperlipidemia presented to the ER with chief complaint of sudden onset shortness of breath while she was sitting watching TV almost an hour prior to arrival. Patient reports generalized chest tightness with a lot of pressure on the left side. Denies any aggravating relieving factors. Does report having chronic smoker's cough which is not any worse than usual but has worsening of wheezing. Patient unable to relate any aggravating or relieving factors associated with it. Patient is not hypoxic on presentation, mildly tachypneic but not tachycardic. EKG showed sinus rhythm with no acute ST elevations. Patient has minimal air movements with wheezing. We will do DuoNeb and steroid. 09/15/22 21:01 She is given 2 neb treatments, on reevaluation she is feeling better but still tachypneic and tachycardic. She has a negative D-dimer. Normal white count, unremarkable chemistries. Normal lactate and procalcitonin. Patient has initial troponins normal as well. I have obtained CTA chest because of her tachypnea and tachycardia although her D-dimers were negative and is negative for any acute intrathoracic findings including PE. I believe patient has COPD exacerbation, I have placed her on 2 L oxygen just for comfort and on reevaluation she feels much improved. I have given a dose of Levaquin as well. I have discussed with Dr. Bond, reviewed history, work-up and patient is being admitted. I have discussed the results of work-up and recommendation of admission with patient in detail who understand and agrees with it. Blood Culture(s) Obtained: Yes Antibiotics given: Yes Will see patient in: hospital (observation) Counseled pt/family regarding: lab results, diagnosis, need for follow-up, rad results Medical Desision Making - Discussion of managment Care discussed with:: hospitalist (Dr. Bond 2009) Reviewed:: Test results Agreed on:: Treatment plan, place in obs Will see patient: in hospital - Risk of complications The pt has a high risk of morbidity or mortality based on: Decision regarding hospitilization or escalation of hosp level of care - Departure Departure Disposition: Observation Clinical Impression: COPD exacerbation Condition: Stable Critical Care Time: No Referrals: MANE LIMON MD [Primary Care Provider] - Follow up/PCP as directed Instructions: Chronic Obstructive Pulmonary Disease
[2022-09-15] MEDS ORDERED: solu-MEDROL ONE (16:03)
[2022-09-15] MEDS ORDERED: Sterile H2O 10 ml IJ ONE (16:03)
[2022-09-15 16:04] LABS: BASOPHIL % 1.3 % (0.0-0.4); Eosinophil % 2.1 % (0.00-5.0); Eosinophil (Absolute #) 0.16 x10^3/uL (0-0.5); Hematocrit 39.3 % (35-47); Hemoglobin 13.6 g/dL (12.0-16.0); IMMATURE GRAN # 0.02 x10^3u/L (0.00-0.03); IMMATURE GRAN % 0.3 % (0.00-0.4); Lymphocyte (Absolute #) 3.25 x10^3/uL (1.0-4.6); Lymphocytes % 43.5 % (24.0-44.0); Mean Cell Volume 91.4 fL (78-100); Mean Corpuscular Hemoglobin 31.6 pg (26-32); Mean Corpuscular Hgb Concent. 34.6 g/dL (32-36); Mean Platelet Volume 9.2 fL (7.5-11.0); Monocyte (Absolute #) 0.54 x10^3/uL (0.0-1.3); Monocytes % 7.2 % (0.0-12.0); Neutrophil % 45.6 % (36.0-66.0); Platelet Count 265 x10^3/uL (150-450); White Blood Count 7.5 x10^3/uL (4.0-10.5)
[2022-09-15 16:34] LABS: ALBUMIN 4.6 g/dL (3.5-5.0); ALKALINE PHOSPHATASE 78 U/L (38-126); ANION GAP 14.6 MEQ/L (5-15); BLOOD UREA NITROGEN 24 mg/dL (7-17); CHLORIDE 107 mmol/L (98-107); Calcium 9.9 mg/dL (8.4-10.2); Carbon Dioxide 23 mmol/L (22-30); Creatinine 1 0.88 mg/dL (0.52-1.04); EST GLOMERULAR FILTRATION RATE > 60.0 ML/MIN; Glucose 98 mg/dL (74-106); NT PRO BNPII 98.3 pg/mL (<300); Potassium 3.8 mmol/L (3.5-5.1); SGOT/AST 46 U/L (14-36); SGPT/ALT 60 U/L (0-35); SODIUM 141 mmol/L (137-145); TROPONIN < 0.012 ng/mL (0.000-0.034); Total Protein 7.9 g/dL (6.3-8.2)
--- NOTE | 2022-09-15 18:59 | XRAY ---
Indication: Short of breath. Comparison: September 27, 2017 Portable chest remains clear. Heart not enlarged for AP portable technique again with CABG. Bony thorax intact again with osteopenia and mild degenerative changes. Impression: Continued nonacute chest with chronic features.
[2022-09-15] MEDS ORDERED: LEVOFLOXACIN 750MG/150ML D5W 750 MG/150 ML BAG IV STA (21:00)
[2022-09-15] MEDS ORDERED: Sodium Chloride 0.9% 1000 ML 1,000 ML IV STA (21:01)
[2022-09-15] MEDS ORDERED: LEVOFLOXACIN 750MG/150ML D5W 750 MG/150 ML BAG IV ONE (21:09)
[2022-09-15] MEDS ORDERED: Sodium Chloride 0.9% 1000 ML 1,000 ML ONE (21:09)
[2022-09-16] MEDS ORDERED: Nitrostat 0.4 MG Tablet SL PRN (00:52)
--- NOTE | 2022-09-16 00:54 | PCM.HP ---
History of Present Illness - Chief Complaint Chief Complaint: COPD exacerbation Date: 09/16/22 History of Present Illness: This is a 61-year-old female with past medical history of hypertension, COPD, CAD with prior CABG 2016 followed by PCI x2, former smoker who presented to the ED this afternoon for evaluation of shortness of breath and chest tightness that was sudden onset while she was watching TV. On arrival she was afebrile, heart rate 88, blood pressure 168/98. Initial labs WBC 7.5, hemoglobin 13.6, creatinine 0.88, D-dimer 0.23, troponin negative, BNP 98, procalcitonin 0.061. EKG no ST changes. CT angio was obtained that was negative for PE she was given DuoNeb treatments and Solu-Medrol and Levaquin. Currently she reports persistent SOB and chest tightness with minimal improvement. - Review of Systems Eyes: No Symptoms Ears, Nose, & Throat: No Symptoms Respiratory: Short Of Breath Cardiac: Chest Pain Abdominal/Gastrointestinal: No Symptoms Genitourinary Symptoms: No Symptoms Musculoskeletal: No Symptoms Skin: No Symptoms Medications & Allergies Home Medications: Home Medication List Clopidogrel Bisulfate [PLAVIX Tablet] 75 mg PO DAILY 12/29/16 [History Confirmed 09/16/22] Lisinopril 20 mg [Zestril 20 MG] 20 mg PO BID 12/29/16 [History Confirmed 09/16/22] Metoprolol Tartrate 50 mg PO BID 12/29/16 [History Confirmed 09/16/22] Atorvastatin Calcium 20 mg PO HS 06/24/17 [History Confirmed 09/16/22] Isosorbide Mononitrate 30 mg [Imdur 30 MG] 30 mg PO DAILY 06/24/17 [History Confirmed 09/16/22] Aspirin EC 81 mg [Ecotrin 81 mg] 324 mg PO DAILY 08/07/18 [History Confirmed 09/16/22] Furosemide 20 mg [Lasix 20 mg] 40 mg PO DAILY 08/07/18 [History Confirmed 09/16/22] Nitroglycerin 0.4 mg (Ed) [Nitrostat 0.4 MG (ED)] 0.4 mg SL UD 08/07/18 [History Confirmed 09/15/22] Ipratropium/Albuterol Sulfate [Combivent Respimat Common Canister] 1 puff IH QID 09/16/22 [History Confirmed 09/16/22] Allergies/Adverse Reactions: Allergies Allergy/AdvReac Type Severity Reaction Status Date / Time Penicillins Allergy Verified 09/16/22 00:19 - Past Medical History Past Medical History: Yes Neurological History: Other ENT History: Cataracts Cardiac History: Angina, Congestive Heart Failure, Coronary Artery Disease, High Cholesterol, Hypertension, Myocardial Infarction ([place]), Peripheral Vascular Disease Respiratory History: Asthma, Bronchitis, CHF, COPD Endocrine Medical History: Other Musculoskelatal History: Osteoporosis GI Medical History: Diverticulitis, Diverticulosis, Gallbladder Disease History: No Pertinent History Pyscho-Social History: No Pertinent History Reproductive Disorders: Uterine Cancer Comment: vertigo, parathyroid disease - Past Surgical History Past Surgical History: Yes Neuro Surgical History: No Pertinent History Cardiac History: CABG, Cardiac Catheterization, Cardiac Stent Respiratory Surgery: No Pertinent History GI Surgical History: Appendectomy, Cholecystectomy Genitourinary Surgical Hx: No Pertinent History Musculskeletal Surgical Hx: No Pertinent History Female Surgical History: Hysterectomy Other Surgical History: 02/15/17 stent placement x 3, 11/2015 cabg x 3 - Social History Smoking Status: Former smoker Exposure to second hand smoke: Yes Alcohol: None Drug Use: none - Physical Exam Vital Signs: Vital Signs - 24 hr Temp Pulse Resp BP Pulse Ox 09/15/22 21:38 98 09/15/22 20:00 120 H 18 124/62 98 09/15/22 19:00 120 H 18 135/85 97 09/15/22 18:20 99 H 21 97 09/15/22 18:06 94 H 24 125/67 97 09/15/22 16:18 97 H 22 97 09/15/22 15:30 96.4 F 88 20 168/98 98 Results - Labs Lab/Micro Results: Lab Results-Last 24 Hours 09/15/22 09/15/22 09/15/22 Range/Units 16:00 16:00 16:00 WBC 7.5 (4.0-10.5) x10^3/uL RBC 4.30 (4.1-5.4) x10^6/uL Hgb 13.6 (12.0-16.0) g/dL Hct 39.3 (35-47) % MCV 91.4 (78-100) fL MCH 31.6 (26-32) pg MCHC 34.6 (32-36) g/dL RDW 13.0 (11.5-14.0) % Plt Count 265 (150-450) x10^3/uL MPV 9.2 (7.5-11.0) fL Gran % 45.6 (36.0-66.0) % Immature Gran % (Auto) 0.3 (0.00-0.4) % Nucleat RBC Rel Count 0.0 (0.00-0.1) % Eos # (Auto) 0.16 (0-0.5) x10^3/uL Immature Gran # (Auto) 0.02 (0.00-0.03) x10^3u/L Absolute Lymphs (auto) 3.25 (1.0-4.6) x10^3/uL Absolute Monos (auto) 0.54 (0.0-1.3) x10^3/uL Absolute Nucleated RBC 0.00 (0.00-0.01) x10^3u/L Lymphocytes % 43.5 (24.0-44.0) % Monocytes % 7.2 (0.0-12.0) % Eosinophils % 2.1 (0.00-5.0) % Basophils % 1.3 (0.0-0.4) % Absolute Granulocytes 3.40 (1.4-6.9) x10^3/uL Basophils # 0.10 (0-0.4) x10^3/uL D-Dimer (0.0-0.50) mg/L Sodium 141 (137-145) mmol/L Potassium 3.8 (3.5-5.1) mmol/L Chloride 107 (98-107) mmol/L Carbon Dioxide 23 (22-30) mmol/L Anion Gap 14.6 (5-15) MEQ/L BUN 24 H (7-17) mg/dL Creatinine 0.88 (0.52-1.04) mg/dL Estimated GFR > 60.0 ML/MIN Glucose 98 (74-106) mg/dL Lactic Acid (0.4-2.0) Calcium 9.9 (8.4-10.2) mg/dL Magnesium 2.0 (1.6-2.3) mg/dL Total Bilirubin 0.60 (0.2-1.3) mg/dL AST 46 H (14-36) U/L ALT 60 H (0-35) U/L Alkaline Phosphatase 78 (38-126) U/L Troponin I < 0.012 (0.000-0.034) ng/mL NT-Pro-B Natriuret Pep 98.3 (<300) pg/mL Serum Total Protein 7.9 (6.3-8.2) g/dL Albumin 4.6 (3.5-5.0) g/dL Procalcitonin 0.061 (0.030-0.080) ng/mL 09/15/22 09/15/22 09/15/22 Range/Units 16:10 17:06 20:10 WBC (4.0-10.5) x10^3/uL RBC (4.1-5.4) x10^6/uL Hgb (12.0-16.0) g/dL Hct (35-47) % MCV (78-100) fL MCH (26-32) pg MCHC (32-36) g/dL RDW (11.5-14.0) % Plt Count (150-450) x10^3/uL MPV (7.5-11.0) fL Gran % (36.0-66.0) % Immature Gran % (Auto) (0.00-0.4) % Nucleat RBC Rel Count (0.00-0.1) % Eos # (Auto) (0-0.5) x10^3/uL Immature Gran # (Auto) (0.00-0.03) x10^3u/L Absolute Lymphs (auto) (1.0-4.6) x10^3/uL Absolute Monos (auto) (0.0-1.3) x10^3/uL Absolute Nucleated RBC (0.00-0.01) x10^3u/L Lymphocytes % (24.0-44.0) % Monocytes % (0.0-12.0) % Eosinophils % (0.00-5.0) % Basophils % (0.0-0.4) % Absolute Granulocytes (1.4-6.9) x10^3/uL Basophils # (0-0.4) x10^3/uL D-Dimer 0.23 (0.0-0.50) mg/L Sodium (137-145) mmol/L Potassium (3.5-5.1) mmol/L Chloride (98-107) mmol/L Carbon Dioxide (22-30) mmol/L Anion Gap (5-15) MEQ/L BUN (7-17) mg/dL Creatinine (0.52-1.04) mg/dL Estimated GFR ML/MIN Glucose (74-106) mg/dL Lactic Acid 1.0 (0.4-2.0) Calcium (8.4-10.2) mg/dL Magnesium (1.6-2.3) mg/dL Total Bilirubin (0.2-1.3) mg/dL AST (14-36) U/L ALT (0-35) U/L Alkaline Phosphatase (38-126) U/L Troponin I < 0.012 (0.000-0.034) ng/mL NT-Pro-B Natriuret Pep (<300) pg/mL Serum Total Protein (6.3-8.2) g/dL Albumin (3.5-5.0) g/dL Procalcitonin (0.030-0.080) ng/mL - Radiology Impressions Radiology Exams & Impressions: Radiology Procedures Category Date Time Status CHEST 1 VIEW (PORTABLE) Stat Exams 09/15/22 15:57 Completed CHEST WITH CONTRAST [CT] Stat Exams 09/15/22 18:05 Taken Assessment/Plan (1) Chest pain Current Visit: Yes Status: Acute Code(s): R07.9 - CHEST PAIN, UNSPECIFIED (2) Shortness of breath Current Visit: Yes Status: Acute Assessment & Plan: PHYSICAL EXAM Gen: Alert and oriented, NAD Eyes: PERRL ENT: MMM CV: S1S2 Pulm: No wheezing, diminished air movement Abd: Soft/nt/nd Extrem: No c/c/e Skin: Dry and intact ASSESSMENT #Possible COPD exacerbation #Chest pain #History of coronary artery disease and prior CABG #History of hypertension PLAN -Solu-Medrol -DuoNebs -SL Nitro -Trend troponin -Echo -Supplemental oxygen to keep saturation 92% -Continue home meds Prophylaxis: Lovenox Entire encounter performed via telemedicine Code(s): R06.02 - SHORTNESS OF BREATH Telemedicine Encounter - Telemedicine Encounter Telemedicine Encounter: The entirety of this encounter was performed via Telemedicine"
[2022-09-16] MEDS ORDERED: DUONEB 0.5-3 MG/3 ml Neb IH SCH ×3 (01:00→10:00)
[2022-09-16] MEDS ORDERED: DUONEB 0.5-3 MG/3 ml Neb IH PRN (01:10)
[2022-09-16] MEDS ORDERED: solu-MEDROL ONE ×2 (01:15→06:36)
[2022-09-16] MEDS ORDERED: Sterile H2O 10 ml IJ ONE (01:16)
[2022-09-16] MEDS: solu-MEDROL 60 MG, Sterile H2O 10 ml 2 ML IV SCH ×8 (01:22→17:40)
[2022-09-16] MEDS ORDERED: Zestril 20 MG PO ONE (01:30)
[2022-09-16] MEDS ORDERED: ZOCOR 20MG PO ONE (01:30)
[2022-09-16] MEDS ORDERED: Lopressor 50 MG PO ONE (01:30)
[2022-09-16 04:59] LABS: Absolute Neutrophil Ct (ANC) 9.74 x10^3/uL (1.4-6.9); BASOPHIL % 0.3 % (0.0-0.4); Basophil (Absolute #) 0.03 x10^3/uL (0-0.4); Eosinophil (Absolute #) 0 x10^3/uL (0-0.5); Hematocrit 37.7 % (35-47); Hemoglobin 12.9 g/dL (12.0-16.0); IMMATURE GRAN # 0.05 x10^3u/L (0.00-0.03); IMMATURE GRAN % 0.5 % (0.00-0.4); Lymphocyte (Absolute #) 1.16 x10^3/uL (1.0-4.6); Lymphocytes % 10.5 % (24.0-44.0); Mean Cell Volume 91.3 fL (78-100); Mean Corpuscular Hemoglobin 31.2 pg (26-32); Mean Corpuscular Hgb Concent. 34.2 g/dL (32-36); Mean Platelet Volume 9.3 fL (7.5-11.0); Monocyte (Absolute #) 0.07 x10^3/uL (0.0-1.3); Monocytes % 0.6 % (0.0-12.0); Neutrophil % 88.1 % (36.0-66.0); Platelet Count 280 x10^3/uL (150-450); Red Blood Count 4.13 x10^6/uL (4.1-5.4); Red Cell Distribution Width 13.6 % (11.5-14.0); White Blood Count 11.1 x10^3/uL (4.0-10.5)
[2022-09-16 05:30] LABS: ALBUMIN 4.4 g/dL (3.5-5.0); ALKALINE PHOSPHATASE 64 U/L (38-126); BLOOD UREA NITROGEN 20 mg/dL (7-17); CHLORIDE 111 mmol/L (98-107); Calcium 8.9 mg/dL (8.4-10.2); Carbon Dioxide 19 mmol/L (22-30); Creatinine 1 0.57 mg/dL (0.52-1.04); EST GLOMERULAR FILTRATION RATE > 60.0 ML/MIN; Glucose 147 mg/dL (74-106); Potassium 4.1 mmol/L (3.5-5.1); SGOT/AST 41 U/L (14-36); SGPT/ALT 54 U/L (0-35); SODIUM 141 mmol/L (137-145); Total Protein 7.6 g/dL (6.3-8.2)
[2022-09-16] MEDS: DUONEB 0.5-3 MG/3 ml Neb IH SCH ×4 (07:16→19:02)
--- NOTE | 2022-09-16 08:39 | XRAY ---
Indication: Short of breath, chest pain, and elevated d-dimer. Multiple contiguous axial images obtained through the chest using 80 cc Isovue 370 contrast and PE protocol. Comparison: August 07, 2018 Good opacification of the pulmonary arteries to include the lobar and segmental branches. No pulmonary embolus. Heart is not enlarged again with CABG. Aorta is normal in course and caliber. No pathologic mediastinal/hilar lymphadenopathy. New small hiatal hernia. Lungs inflated and remain clear. Bony thorax intact again with mild degenerative changes throughout the spine and a few tiny multilevel Schmorl nodes. Limited upper abdomen again demonstrates fatty liver. Interval cholecystectomy. Impression: 1. Negative pulmonary embolus. No new/acute cardiopulmonary abnormalities. 2. Chronic findings including fatty liver and chronic bony findings.
[2022-09-16] MEDS: Lopressor 50 MG PO SCH ×2 (09:14→21:36)
[2022-09-16] MEDS: PLAVIX Tablet PO SCH (09:14)
[2022-09-16] MEDS: Imdur 30 MG PO SCH (09:14)
[2022-09-16] MEDS: Lasix 40 MG PO SCH (09:14)
[2022-09-16] MEDS: Ecotrin 325 MG PO SCH (09:14)
[2022-09-16] MEDS: ENOXAPARIN SODIUM SQ SCH (09:15)
[2022-09-16] MEDS: PROTONIX 40 MG IV IV SCH (09:15)
[2022-09-16] MEDS ORDERED: Levofloxacin 500MG/100ML D5W 500 MG/100 ML BAG IV SCH (10:00)
[2022-09-16] MEDS ORDERED: ECOTRIN 81 MG PO SCH (10:00)
[2022-09-16] MEDS ORDERED: LASIX 20 MG PO SCH (10:00)
[2022-09-16] MEDS: Zestril 20 MG PO SCH ×2 (10:06→21:36)
--- NOTE | 2022-09-16 14:28 | TM.IN ---
Tele-Medicine Incident Note - Incident Note Tel-Medicine Incident Note: 09/16/22 [id number] Follow-up note: Patient seen by Dr. Worrell overnight, then seen on daytime rounds today. Feeling better, with chest tightness relieved by nebulizer treatments. However, she still requires help to walk to the bathroom. On exam, no wheezing currently, and moving air better than described overnight. We will continue on nebulizer treatments and Solu-Medrol, and likely will be ready for discharge tomorrow. Entirety of encounter took place via telemedicine. Telemedicine Encounter - Telemedicine Encounter Telemedicine Encounter: The entirety of this encounter was performed via Telemedicine"
--- NOTE | 2022-09-16 15:45 | ECHO ---
Transthoracic echocardiographic examination and color Doppler was done on 09/16/2022. INDICATION: Chest pains. IMPRESSION: 1) NO REGIONAL WALL MOTION ABNORMALITY. ESTIMATED GLOBAL LEFT VENTRICULAR EJECTION FRACTION OF AROUND 65-70%. 2) MILD TRICUSPID REGURGITATION. RIGHT VENTRICULAR SYSTOLIC PRESSURE OF 36 MM OF MERCURY. 3) LEFT VENTRICLE DIASTOLIC DYSFUNCTION. 4) LEFT VENTRICULAR HYPERTROPHY. The left ventricle is visualized and demonstrated adequate motion of all the segments. Estimated global left ventricular ejection fraction is between 65 to 70%. There is mild left ventricular hypertrophy. The mitral valve is seen and this opens adequately. No significant mitral regurgitation is seen. Tissue Doppler study of the lateral mitral annulus is suggestive of left ventricle diastolic dysfunction. Left atrium is normal. The aortic valve opens adequately. There is no significant gradient across the left ventricular outflow tract. The right side chambers are normal with normal right ventricular contractility. There is mild tricuspid regurgitation. The right ventricular systolic pressure of 36 mm of Mercury.
[2022-09-16] MEDS ORDERED: xanAX 0.25 MG PO PRN (19:56)
[2022-09-16] MEDS ORDERED: TYLENOL 325 MG PO PRN (19:56)
[2022-09-16] MEDS ORDERED: ZOCOR 20MG PO SCH (22:00)
[2022-09-16] MEDS ORDERED: NON-FORMULARY ITEM (Atorvastatin Calcium [Atorvastatin Calcium] 20 MG Tablet) PO SCH (22:00)
[2022-09-17] MEDS: solu-MEDROL 60 MG, Sterile H2O 10 ml 2 ML IV SCH ×4 (00:20→05:50)
[2022-09-17 04:54] LABS: Hematocrit 36.8 % (35-47); Hemoglobin 12.2 g/dL (12.0-16.0); Mean Cell Volume 92.7 fL (78-100); Mean Corpuscular Hemoglobin 30.7 pg (26-32); Mean Corpuscular Hgb Concent. 33.2 g/dL (32-36); Mean Platelet Volume 9.2 fL (7.5-11.0); Platelet Count 275 x10^3/uL (150-450); Red Blood Count 3.97 x10^6/uL (4.1-5.4); Red Cell Distribution Width 14.3 % (11.5-14.0); White Blood Count 17.1 x10^3/uL (4.0-10.5)
[2022-09-17 05:05] LABS: ANION GAP 13.4 MEQ/L (5-15); BLOOD UREA NITROGEN 26 mg/dL (7-17); CHLORIDE 110 mmol/L (98-107); Calcium 9.3 mg/dL (8.4-10.2); Carbon Dioxide 24 mmol/L (22-30); Creatinine 1 0.73 mg/dL (0.52-1.04); EST GLOMERULAR FILTRATION RATE > 60.0 ML/MIN; Glucose 154 mg/dL (74-106); Potassium 3.9 mmol/L (3.5-5.1); SODIUM 143 mmol/L (137-145)
[2022-09-17] MEDS: DUONEB 0.5-3 MG/3 ml Neb IH SCH ×2 (06:59→07:34)
[2022-09-17] MEDS ORDERED: DUONEB 0.5-3 MG/3 ml Neb IH SCH (07:30)
[2022-09-17] MEDS ORDERED: DUONEB 0.5-3 MG/3 ml Neb IH PRN (08:14)
[2022-09-17] MEDS: Zestril 20 MG PO SCH (09:38)
[2022-09-17] MEDS: Imdur 30 MG PO SCH (09:38)
[2022-09-17] MEDS: Ecotrin 325 MG PO SCH (09:38)
[2022-09-17] MEDS: Lasix 40 MG PO SCH (09:38)
[2022-09-17] MEDS: ENOXAPARIN SODIUM SQ SCH (09:38)
[2022-09-17] MEDS: Lopressor 50 MG PO SCH (09:38)
[2022-09-17] MEDS: PLAVIX Tablet PO SCH (09:38)
[2022-09-17] MEDS: PROTONIX 40 MG IV IV SCH (09:39)
[2022-09-17] MEDS ORDERED: solu-MEDROL 60 MG, Sterile H2O 10 ml 2 ML IV SCH ×2 (10:00)
--- NOTE | 2022-09-17 11:29 | PCM.DS ---
Discharge Summary Date of Admission: 09/15/22 23:40 Date of Discharge: 09/17/2022 Admitting Physician: LUIS SANTAMARIA MD Primary Care Provider: MANE LIMON Allergies Allergies Penicillins Allergy (Verified 09/16/22 00:19) Hospital Summary - Hospital Course Hospital Course: 61-year-old with a history of COPD, hypertension, CAD, who presented with chest tightness and dyspnea for 1 day. Her cardiac enzymes and EKG were all negative, and CTA chest was negative for pulmonary embolism. This was felt to be due to an exacerbation of her COPD, and had significant relief of symptoms by bronchodilator treatments. She was admitted for observation and was given IV steroids and nebulizer treatments, with rapid improvement in her symptoms. She was able to be weaned off of oxygen (which she was on briefly), and was able to ambulate in the hallway without difficulty. By time of discharge, she was wheezing well, having good air movement. She had 1 night of some vivid dreams and feeling "weird" due to the high-dose steroids, but was otherwise doing well. We will discharge home to complete a 5-day course of steroids for acute COPD exacerbation. Greater than 30 minutes spent arranging discharge. - Vitals & Intake/Output Vital Signs: Vital Signs Temperature 97.3 F 09/17/22 07:17 Pulse Rate 73 09/17/22 07:17 Respiratory Rate 18 09/17/22 07:17 Blood Pressure 174/79 09/17/22 07:17 O2 Sat by Pulse Oximetry 94 L 09/17/22 07:17 Intake & Output: Intake & Output 09/14/22 09/15/22 09/16/22 09/17/22 11:59 11:59 11:59 11:59 Intake Total 460 900 Balance 460 900 Weight 79.2 kg - Lab Result Diagrams: 09/17/22 01:03 09/17/22 04:25 Lab Results-Last 24 Hrs: Lab Results-Last 24 Hours 09/17/22 09/17/22 Range/Units 01:03 04:25 WBC 17.1 H (4.0-10.5) x10^3/uL RBC 3.97 L (4.1-5.4) x10^6/uL Hgb 12.2 (12.0-16.0) g/dL Hct 36.8 (35-47) % MCV 92.7 (78-100) fL MCH 30.7 (26-32) pg MCHC 33.2 (32-36) g/dL RDW 14.3 H (11.5-14.0) % Plt Count 275 (150-450) x10^3/uL MPV 9.2 (7.5-11.0) fL Sodium 143 (137-145) mmol/L Potassium 3.9 (3.5-5.1) mmol/L Chloride 110 H (98-107) mmol/L Carbon Dioxide 24 (22-30) mmol/L Anion Gap 13.4 (5-15) MEQ/L BUN 26 H (7-17) mg/dL Creatinine 0.73 (0.52-1.04) mg/dL Estimated GFR > 60.0 ML/MIN Glucose 154 H (74-106) mg/dL Calcium 9.3 (8.4-10.2) mg/dL Micro Results-Entire Visit: Microbiology 09/15/22 16:23 Blood Culture - Preliminary Blood 09/15/22 16:20 Blood Culture - Preliminary Blood - Radiology Exams Ordered Rad Exams-Entire Visit: Radiology Procedures Category Date Time Status CHEST 1 VIEW (PORTABLE) Stat Exams 09/15/22 15:57 Completed CHEST WITH CONTRAST [CT] Stat Exams 09/15/22 18:05 Completed ECHO W/2D AND DOPPLER [US] Routine Exams 09/16/22 01:[address] chest with contrast: Negative for pulmonary embolus. No new or acute cardiopulmonary abnormalities. Chronic findings include fatty liver and chronic bony findings. Echocardiogram: No regional wall motion abnormalities. LVEF 60 to 70%. Left ventricular hypertrophy with diastolic dysfunction. - Procedures and Test Procedures and Tests throughout Hospitalization: Therapy Orders & Screens 09/15/22 16:17 Respiratory Therapy Assessment DAILY Comment: 09/16/22 00:52 RT Screen per Nursing Assess ONCE Comment: Protocol Order Physician Instructions: Greater than 3 points order RT Admission Screen Reason For Exam: Triggered on Admission Diagnosis: COPD exacerbation Diagnosis: COPD exacerbation Pneumonia: No Home O2: No Asthma: No CHF: Yes Home CPAP/BIPAP: No Home Nebs/MDI: Yes Total Points: 8 Discharge Exam General Appearance: no apparent distress Neurologic Exam: alert, oriented x 3, normal mood/affect Eye Exam: eyes nml inspection Respiratory Exam: normal breath sounds, No respiratory distress, No prolonged expirations, No crackles/rales, No wheezing Cardiovascular Exam: regular rate/rhythm, normal heart sounds, No edema Gastrointestinal/Abdomen Exam: soft, No tenderness, No distention Final Diagnosis/Problem List - Final Discharge Diagnosis/Problem (1) COPD exacerbation Current Visit: Yes Status: Acute Code(s): J44.1 - CHRONIC OBSTRUCTIVE PULMONARY DISEASE W (ACUTE) EXACERBATION Telemedicine Encounter - Telemedicine Encounter Telemedicine Encounter: The entirety of this encounter was performed via Telemedicine" - Discharge Discharge Date: 09/17/22 Disposition: Home, Self-Care Condition: Stable Prescriptions: New Prednisone 20 mg [Deltasone 20 mg] 40 mg PO DAILY #6 tablet Continue Lisinopril 20 mg [Zestril 20 MG] 20 mg PO BID Metoprolol Tartrate 50 mg PO BID Clopidogrel Bisulfate [PLAVIX Tablet] 75 mg PO DAILY Isosorbide Mononitrate 30 mg [Imdur 30 MG] 30 mg PO DAILY Atorvastatin Calcium 20 mg PO HS Aspirin EC 81 mg [Ecotrin 81 mg] 324 mg PO DAILY Nitroglycerin 0.4 mg (Ed) [Nitrostat 0.4 MG (ED)] 0.4 mg SL UD Furosemide 20 mg [Lasix 20 mg] 40 mg PO DAILY Ipratropium/Albuterol Sulfate [Combivent Respimat Common Canister] 1 puff IH QID Additional Instructions: [employer] AT [facility]- CALL [phone] Follow up with: MANE LIMON MD [Primary Care Provider] - 1 Week
[2022-09-17 12:13] VITALS: BP 158/69; PULSE 74; O2SAT 96
== END 2022-09-17 12:10 | disposition home or self-care (01) ==
LOC: ED 15:25 → MED SURG 23:40
PROVIDERS: ADMIT Internal Medicine; ATTEND General Practice
DX: J44.1 Chronic obstructive pulmonary disease with (acute) exacerbation (principal); R07.9 Chest pain, unspecified; I11.0 Hypertensive heart disease with heart failure; I50.9 Heart failure, unspecified; I25.10 Atherosclerotic heart disease of native coronary artery without angina pectoris; E78.5 Hyperlipidemia, unspecified; Z79.01 Long term (current) use of anticoagulants; Z79.899 Other long term (current) drug therapy; Z20.828 Contact with and (suspected) exposure to other viral communicable diseases; Z95.1 Presence of aortocoronary bypass graft; Z87.891 Personal history of nicotine dependence; Z85.42 Personal history of malignant neoplasm of other parts of uterus
CPT/HCPCS: 36000; 36415; 71045; 71260; 80048; 80053; 83605; 83735; 83880; 84145; 84484; 85025; 85027; 85379; 87040; 93005; 93041; 93268; 93306; 94640; 94760; 96374; 99285; G0378; Q3014; J1650; J1956; J2930; A9270-GY